=== PATIENT | female | born 1980 | race Caucasian/White ===

== ENCOUNTER 2016-05-28 15:59 | Emergency (ER) | payer OTHER ==
[~2016-05-28] VITALS: Ht 172.7 cm; Wt 70.7 kg
[~2016-05-28 15:59] MED LIST: GABA-113 PO; HYDR-5688 PO; VALP250C3 PO
[2016-05-28 16:04] VITALS: Ht 172.7 cm; Wt 70.7 kg
[2016-05-28 16:12] VITALS: O2SAT 96
--- NOTE | 2016-05-28 16:25 | DIAGNOSTIC IMAGING REPORT ---
CHEST ONE VIEW PORTABLE CLINICAL HISTORY: CHEST PAIN dyspnea COMPARISON STUDY: 06/19/2015 FINDINGS: The bones soft tissues and hemidiaphragms are normal. The cardiomediastinal silhouette is normal. The lungs are clear. The pulmonary vasculature is normal. IMPRESSION: Negative chest. Electronically signed by: Trever Hess M.D. 05/28/2016 4:23 PM Dictated Date/Time: 05/28/2016 4:23 PM
[2016-05-28 16:31] LABS: BASO % 1.4 %; BASO ABS # 0.11 K/uL (0-0.2); COMPLETE YES; EOS % 2.9 %; HEMATOCRIT 41.4 % (37-47); IG% 0.1 %; LYMPH % 26.7 %; LYMPH ABS # 2.05 K/uL (1.2-3.4); MEAN CELL VOLUME 89.8 fL (80-100); MEAN CORPUSCULAR HEMOGLOBIN 31.2 pg (25-34); MEAN CORPUSCULAR HGB CONC 34.8 g/dl (32-36); MONO % 11.8 %; NEUT % 57.1 %; PLATELET COUNT 302 K/uL (130-400); RED BLOOD COUNT 4.61 M/uL (4.2-5.4); WHITE BLOOD COUNT 7.68 K/uL (4.8-10.8)
[2016-05-28] MEDS ORDERED: PRZ/40 PO (16:40)
[2016-05-28] MEDS ORDERED: WEIGHT LOSS PO (16:40)
[2016-05-28] MEDS ORDERED: ONDANSETRON INJ 2 MG/ML 2 ML VIAL IV STA (16:42)
[2016-05-28] MEDS ORDERED: SODIUM CHLORIDE 0.9% 1000ML 1,000 ML IV STA (16:42)
[2016-05-28] MEDS ORDERED: LORAZEPAM 2 MG/ML 1 ML VIAL IV STA ×2 (16:42→17:28)
[2016-05-28 16:50] LABS: PREG INTERNAL NEGATIVE QC NEG CLEAR BACKGROUND; PREG INTERNAL POSITIVE QC POS CONTROL LINE
[2016-05-28 16:52] LABS: ALT/SGPT 27 U/L (12-78); AST/SGOT 16 U/L (15-37); BLOOD UREA NITROGEN 8 mg/dl (7-18); BUN/CREATININE RATIO 8.1 (10-20); CALCIUM 9.3 mg/dl (8.5-10.1); CARBON DIOXIDE 22 mmol/L (21-32); CHLORIDE 104 mmol/L (98-107); CREATININE 0.96 mg/dl (0.60-1.20); GLUCOSE 109 mg/dl (70-99); POTASSIUM 3.6 mmol/L (3.5-5.1); SODIUM 139 mmol/L (136-145)
[2016-05-28 16:57] LABS: ALKALINE PHOSPHATASE 119 U/L (45-117)
--- NOTE | 2016-05-28 18:15 | DIAGNOSTIC IMAGING REPORT ---
CT HEAD WITHOUT CONTRAST (CT) CLINICAL HISTORY: seizure COMPARISON STUDY: 04/12/2015 TECHNIQUE: Axial CT of the brain is performed from the vertex to the skull base. IV contrast was not administered for this examination. CT DOSE: 638.56 mGycm FINDINGS: No intra or extra-axial mass lesions are visualized. There is no CT evidence of acute cortical infarction. There is no evidence of midline shift. There is no acute hemorrhage. No calvarial fractures are visualized. There is no evidence of pathologic ventricular dilatation. There is no evidence of acute sinusitis IMPRESSION: Normal noncontrast head CT. Electronically signed by: Geovanny Moya M.D. 05/28/2016 6:13 PM Dictated Date/Time: 05/28/2016 6:12 PM
[2016-05-28] MEDS ORDERED: DIVALPROEX 500 MG EXTENDED RELEASE TAB PO ONE (18:45)
[2016-05-28 20:45] VITALS: BP 114/62; PULSE 89; TEMP 36.7; O2SAT 97
--- NOTE | 2016-05-28 21:59 | EMERGENCY ROOM VISIT NOTE ---
History Report prepared by Sg: Sophia Vasquez Under the Supervision of: Dr. Hal Guzman M.D. First contact with patient: 16:03 Chief Complaint: SEIZURE Stated Complaint: SOB,CHEST PAIN,SEIZURE History of Present Illness The patient is a 36 year old female who presents to the Emergency Room with complaints of intermittent seizure like activity that began around 1400 today. Per the patient's , the patient her first seizure like episode, noting that the patient arched her back, began shaking violently, her eyes rolled back in her head, and became unresponsive. He notes that the patient had four more seizure like episodes today and notes that the patient was post ictal after each episode. The patient's notes that the patient has been confused after each episode. The patient additionally associates chest pain and shortness of breath after each seizure like activity episode today. The patient states that when she woke this morning she had a migraine-headache and states that she took Excedrin for her headache. She states that she has been vomiting all day, but states that she has been vomiting her seizure medications back up. The patient states that she is currently on 250 mg of Depakote in the morning and 500 mg of Depakote in the evening, but states that she often forgets to take her medications recently. She additionally notes that she is a frequent marijuana user. The patient denies any urinary or bowel incontinence or biting her tongue today during the episode. She states that she has not had a seizure for the past year. The patient states that at the beginning of the week she began to not sleep well and has had bilateral flank pains. The patient 's states that the patient has been under increased stress recently, which her neurologist believes is related to her seizures. Pt denies LOC, headache, fevers, chills, diaphoresis, visual changes, neck pain, nausea, abdominal pain, back pain, melena, hematochezia, urinary symptoms, numbness, weakness, lymphadenopathy, rash, or other complaints. Source of History: patient Onset: 1400 today Position: other (global) Quality: other (seizure like activity) Timing: intermittent Associated Symptoms: + SOB, + chest pain, + headache, + vomiting Note: Associated Symptoms: bilateral flank pains, confusion, post ictal Review of Systems See HPI for pertinent positives and negatives. A total of ten systems were reviewed and were otherwise negative. Past Medical & Surgical Medical Problems: (1) Anxiety State Nos (2) Cannabis Abuse-Unspec (3) Depression (4) Depressive Disorder Nec (5) Generalized-onset seizures (6) Migraine (7) Ovarian Cyst Nec/Nos Surgical Problems: (1) History of delivery (2) Tubal Ligation Status Family History Cancer Gallbladder disease Hypertension Lung disease Seizures Social History Smoking Status: Current Every Day Smoker Alcohol Use: occasionally Drug Use: marijuana Marital Status: single Housing Status: lives with family Occupation Status: unemployed Current/Historical Medications Scheduled Fluoxetine Hcl (Prozac), 40 MG PO DAILY Valproic Acid (Valproic Acid), 250 MG PO QAM Valproic Acid (Valproic Acid), 500 MG PO QPM [Weight Loss Tab], 1 TAB PO DAILY Allergies Coded Allergies: Coconut (Verified Allergy, Intermediate, THROAT IRRITATION, 02/17/16) Cephalexin (Verified Allergy, Unknown, RASH, 02/17/16) Uncoded Allergies: COD FISH (Allergy, Unknown, PREORBITAL SWELLING, 07/24/14) Physical Exam Vital Signs Date Time Temp Pulse Resp B/P Pulse Ox O2 Delivery O2 Flow Rate FiO2 05/28/16 20:45 36.7 89 22 114/62 97 05/28/16 20:44 89 22 114/62 97 Room Air 05/28/16 19:25 77 22 121/78 96 Room Air 05/28/16 17:45 72 22 129/74 96 Room Air 05/28/16 17:00 83 24 115/73 96 Room Air 05/28/16 16:22 78 24 117/73 96 Room Air 05/28/16 16:12 96 Room Air 05/28/16 16:12 96 Room Air 05/28/16 16:10 63 05/28/16 16:04 36.7 86 24 144/89 96 Room Air Physical Exam GENERAL: Awake, alert, well appearing, no distress HENT: Normocephalic, atraumatic. TM's normal. Oropharynx unremarkable. EYES: PERRL. EOMI. Normal conjunctiva. Sclera non-icteric. NECK: Supple. No nuchal rigidity. FROM. No JVD or bruit. RESPIRATORY: CTA CARDIAC: RRR. No murmur. ABDOMEN: Soft, non distended. No tenderness to palpation. No rebound or guarding. No masses. RECTAL: Deferred. MUSCULOSKELETAL: Unremarkable. No edema. No discoloration. Gross motor strength symmetric. NEURO: Cranial nerves 2-12 grossly intact. Normal sensorium. No sensory or motor deficits noted. Speech normal. No pronator drift. SKIN: No rash or jaundice noted. LYMPH: No adenopathy. Medical Decision & Procedures ER Provider Diagnostic Interpretation: X ray results as stated below per my interpretation and radiologist interpretation. Other radiology results as stated below per my review and radiologist interpretation CHEST ONE VIEW PORTABLE CLINICAL HISTORY: CHEST PAIN dyspnea COMPARISON STUDY: 06/19/2015 FINDINGS: The bones soft tissues and hemidiaphragms are normal. The cardiomediastinal silhouette is normal. The lungs are clear. The pulmonary vasculature is normal. IMPRESSION: Negative chest. Electronically signed by: Trever Hess M.D. 05/28/2016 4:23 PM Dictated Date/Time: 05/28/2016 4:[address] HEAD WITHOUT CONTRAST (CT) CLINICAL HISTORY: seizure COMPARISON STUDY: 04/12/2015 TECHNIQUE: Axial CT of the brain is performed from the vertex to the skull base. IV contrast was not administered for this examination. CT DOSE: 638.56 mGycm FINDINGS: No intra or extra-axial mass lesions are visualized. There is no CT evidence of acute cortical infarction. There is no evidence of midline shift. There is no acute hemorrhage. No calvarial fractures are visualized. There is no evidence of pathologic ventricular dilatation. There is no evidence of acute sinusitis IMPRESSION: Normal noncontrast head CT. Electronically signed by: Geovanny Moya M.D. 05/28/2016 6:13 PM Dictated Date/Time: 05/28/2016 6:12 PM Laboratory Results 05/28/16 16:15 Red Blood Count 4.61, Mean Corpuscular Volume 89.8, Mean Corpuscular Hemoglobin 31.2, Mean Corpuscular Hemoglobin Concent 34.8, Mean Platelet Volume 10.0, Neutrophils (%) (Auto) 57.1, Lymphocytes (%) (Auto) 26.7, Monocytes (%) (Auto) 11.8, Eosinophils (%) (Auto) 2.9, Basophils (%) (Auto) 1.4, Neutrophils # (Auto ) 4.38, Lymphocytes # (Auto) 2.05, Monocytes # (Auto) 0.91, Eosinophils # (Auto ) 0.22, Basophils # (Auto) 0.11 05/28/16 16:15 Test 05/28/16 16:15 05/28/16 16:27 White Blood Count 7.68 K/uL (4.8-10.8) Red Blood Count 4.61 M/uL (4.2-5.4) Hemoglobin 14.4 g/dL (12.0-16.0) Hematocrit 41.4 % (37-47) Mean Corpuscular Volume 89.8 fL (80-100) Mean Corpuscular Hemoglobin 31.2 pg (25-34) Mean Corpuscular Hemoglobin Concent 34.8 g/dl (32-36) Platelet Count 302 K/uL (130-400) Mean Platelet Volume 10.0 fL (7.4-10.4) Neutrophils (%) (Auto) 57.1 % Lymphocytes (%) (Auto) 26.7 % Monocytes (%) (Auto) 11.8 % Eosinophils (%) (Auto) 2.9 % Basophils (%) (Auto) 1.4 % Neutrophils # (Auto) 4.38 K/uL (1.4-6.5) Lymphocytes # (Auto) 2.05 K/uL (1.2-3.4) Monocytes # (Auto) 0.91 K/uL (0.11-0.59) Eosinophils # (Auto) 0.22 K/uL (0-0.5) Basophils # (Auto) 0.11 K/uL (0-0.2) RDW Standard Deviation 44.1 fL (36.4-46.3) RDW Coefficient of Variation 13.5 % (11.5-14.5) Immature Granulocyte % (Auto) 0.1 % Immature Granulocyte # (Auto) 0.01 K/uL (0.00-0.02) Anion Gap 13.0 mmol/L (3-11) Est Creatinine Clear Calc Drug Dose 81.7 ml/min Estimated GFR () 88.2 Estimated GFR (Non- 76.1 BUN/Creatinine Ratio 8.1 (10-20) Calcium Level 9.3 mg/dl (8.5-10.1) Total Bilirubin 0.2 mg/dl (0.2-1) Direct Bilirubin < 0.1 mg/dl (0-0.2) Aspartate Amino Transf (AST/SGOT) 16 U/L (15-37) Alanine Aminotransferase (ALT/SGPT) 27 U/L (12-78) Alkaline Phosphatase 119 U/L (45-117) Total Creatine Kinase 67 U/L (26-192) Creatine Kinase MB < 0.5 ng/ml (0.5-3.6) Creatine Kinase MB Ratio (0-3.0) Total Protein 8.3 gm/dl (6.4-8.2) Albumin 4.1 gm/dl (3.4-5.0) Lipase 126 U/L (73-393) Human Chorionic Gonadotropin, Qual NEG (NEG) Valproic Acid (Depakene) Level 13 mcg/ml (50-100) Bedside D-Dimer 112 ng/mlFEU (0-450) Bedside Troponin I 0.000 ng/ml (0-0.045) Medications Administered Medications (Trade) Dose Ordered Sig/Olya Route Start Time Stop Time Status Last Admin Dose Admin Sodium Chloride (Nss 1000ml) 1,000 ml @ 999 mls/hr Q1H1M STAT IV 05/28/16 16:42 05/28/16 17:42 DC 05/28/16 17:16 999 MLS/HR Ondansetron HCl (Zofran Inj) 4 mg NOW STAT IV 05/28/16 16:42 05/28/16 16:43 DC 05/28/16 17:16 4 MG Lorazepam (Ativan Inj) 0.5 mg NOW STAT IV 05/28/16 16:42 05/28/16 16:43 DC 05/28/16 17:16 0.5 MG Lorazepam (Ativan Inj) 0.5 mg NOW STAT IV 05/28/16 17:28 05/28/16 17:30 DC 05/28/16 17:34 0.5 MG Divalproex Sodium (Depakote Extended Rel Tab) 500 mg NOW ONCE PO 05/28/16 18:45 05/28/16 18:46 DC 05/28/16 18:56 500 MG ECG Indication: other (seizure) Rate (beats per minute): 61 Rhythm: normal sinus Findings: no acute ischemic change, no ectopy ED Course 1604: The patient was evaluated in room B4. A complete history and physical exam was performed by the medical student. 1615: May 29 2014 had an episode during EEG that did not correlate with any EEG findings, so they felt it was a pseudo seizure. 1640: The patient was evaluated in room B4. A complete history and physical exam was performed. 1642: Ordered Ativan Inj 0.5 mg IV, Zofran Inj 4 mg IV, Sodium Chloride 1000 ml @ 999 mls/hr IV. 1651: The patient experienced seizure like activity at this time that lasted approximately 10 seconds. 1728: Ordered Ativan Inj 0.5 mg IV. 1812: I reevaluated the patient and she is doing well and feeling better. 183: I discussed the patients case with Dr. Deleon, Neurology. He states that the patient should have 500 mg of Depakote now, 500 mg of Depakote tonight, and then her regular dose in the morning. 1840: I reevaluated the patient and she is resting comfortably. 1844: Ordered Depakote Extended Rel Tab 500 mg PO. 1943: I reevaluated the patient and she is resting comfortably. I discussed the exam findings with her and I discussed the treatment plan. She verbalized complete understanding and agreement. She is ready to go home. Medical Decision Prior records/ancillary studies reviewed. Patient placed in seizure precautions immediately upon arrival. Nursing notes reviewed and agree them. Additional history obtained from family. The patient's history was concerning for a possible seizure. Differential diagnosis: Etiologies such as seizure, pseudoseizure, infection, hypoglycemia, electrolyte abnormalities, cardiac sources, intracerebral event, trauma, toxicologic, neurologic, PE, as well as others were entertained. Physical examination: As above. No signs of trauma. ER treatment provided: IV saline hydration, IV Ativan 0.5 mg 2 On reassessment the patient felt better. Depakote 500 mg orally Diagnostics interpretation by me: ECG: Normal The labs revealed an unremarkable CBC, chemistry panel, cardiac markers, test, urinalysis and a very low valproic acid level. This is consistent with the fact that the patient admits to not taking her valproic acid. D-dimer negative. Imaging studies: X-ray and CT scan as above The patient had a tonic-clonic like seizure described at home. She then had for slightly different episodes. The episodes she had here were short lived and there was no postictal period. The patient had one witnessed directly by me. She never had cyanosis. She had arching of her back and muscular tension in her arms. She was able to converse and coherent within about 10 seconds of the episode stopping. She does carry the diagnosis of seizure as well as the diagnosis of pseudoseizure. The episodes witnessed here by myself and nursing seemed to be most consistent with pseudoseizure as the nurses were actually noting she was able to be verbally controlled during the episodes for them. Consultation: A consultation was placed with the neurologist, .Dr. Deleon The case was discussed and diagnostics were reviewed. He recommended 500 mg twice today of the Depakote and then resume normal maintenance with close outpatient follow-up The patient has a history of seizures and experienced another episode. No concerning physical findings or historical points were noted. Advanced diagnostics were deemed unnecessary. By the evaluation outlined above emergent etiologies such as infection, hypoglycemia, electrolyte abnormalities, cardiac sources, intracerebral event, toxicologic, neurologic,as well as others were deemed relatively unlikely. The patient was counseled not to drive until cleared in follow-up. The patient states she is currently unable to drive. The patient and family were informed about the findings as listed above. All questions were answered and they were pleased with the treatment. Return instructions were outlined and the patient was discharged in stable condition. Outpatient prescription management: Continue current medications as previously prescribed Referral: The patient was referred back to her neurologist and her primary care physician for follow-up BRANDEE for a recheck of the current condition. The chart was completed utilizing [employer] Speech voice recognition software. Grammatical errors, random word insertions, pronoun errors, and incomplete sentences are an occasional consequence of this system due to software limitations, ambient noise, and hardware issues. Any formal questions or concerns about the content, text, or information contained within the body of this dictation should be directly addressed to the physician for clarification. Consults Time Called: 1829 Consulting Physician: Dr. Deleon, Neurology Returned Call: 1831 I discussed the patients case with Dr. Deleon, Neurology. He states that the patient should have 500 mg of Depakote now, 500 mg of Depakote tonight, and then her regular dose in the morning. Impression Primary Impression: Seizure-like activity Additional Impression: Noncompliance with medication regimen Scribe Attestation The scribe's documentation has been prepared under my direction and personally reviewed by me in its entirety. I confirm that the note above accurately reflects all work, treatment, procedures, and medical decision making performed by me. Departure Information Dispostion Home / Self-Care Referrals Antonette Cortés, C.R.N.P. (PCP) Forms HOME CARE DOCUMENTATION FORM, IMPORTANT VISIT INFORMATION Patient Instructions A Signature Page, My [facility] Additional Instructions Take an additional 100 mg of Depakote this evening and then resume normal medication dose. Ibuprofen(Motrin, Advil) may be used for fever or pain. Use 600mg every six hours as needed. Take with food. Avoid using more than 2400mg in a 24 hour period. Do not use 2400mg per day for more than three consecutive days without physician direction. Prolonged inappropriate use can lead to stomach upset or ulcers. (AND/OR) Acetaminophen(Tylenol) may be used for fever or pain. Use 1000mg every six hours as needed. Avoid using more than 4000mg in a 24 hour period. Rest and drink plenty of fluids as tolerated. Continue current medications. Return to the ER for passing out, chest pain, headache, persistent vomiting, fevers, abdominal pain, chest pains, difficulty breathing, black or bloody stools, worsening of your condition, or as needed. Follow up with your primary physician and neurologist first thing next week for a recheck of your current condition
[2016-10-23] MEDS ORDERED: PRVHFAIN (11:15)
[2016-11-13] MEDS ORDERED: OXYC-57 PO (13:51)
[2016-11-13] MEDS ORDERED: MTR600X PO (13:51)
== END 2016-05-28 20:47 | disposition home or self-care (01) ==
LOC: C.EDB 16:02
DX: G40.309 Generalized idiopathic epilepsy and epileptic syndromes, not intractable, without status epilepticus (principal); F41.9 Anxiety disorder, unspecified; F32.9 Major depressive disorder, single episode, unspecified; N83.209 Unspecified ovarian cyst, unspecified side; F17.200 Nicotine dependence, unspecified, uncomplicated; Z98.61 Coronary angioplasty status; Z79.899 Other long term (current) drug therapy; Z91.018 Allergy to other foods; Z88.8 Allergy status to other drugs, medicaments and biological substances; Z80.9 Family history of malignant neoplasm, unspecified; Z83.79 Family history of other diseases of the digestive system; Z82.49 Family history of ischemic heart disease and other diseases of the circulatory system; Z82.0 Family history of epilepsy and other diseases of the nervous system

== ENCOUNTER 2016-07-27 20:25 | Emergency (ER) | payer OTHER ==
[~2016-07-27] VITALS: Ht 172.7 cm; Wt 70.8 kg
[~2016-07-27 20:25] MED LIST changes: -GABA-113 PO; -HYDR-5688 PO; +PRZ/40 PO; +WEIGHT LOSS PO
[2016-07-27 20:33] VITALS: BP 116/75; PULSE 87; TEMP 37.1; O2SAT 97; Ht 172.7 cm; Wt 70.8 kg
[2016-07-27] MEDS ORDERED: HYDROCODONE/ACETAMOPHEN 5/325MG TAB PO STA (20:45)
[2016-07-27] MEDS ORDERED: NORCO 5/325MG HOME PACK PO ONE (20:45)
[2016-07-27] MEDS ORDERED: DIVA500T59 PO ×2 (20:52)
--- NOTE | 2016-07-27 21:10 | EMERGENCY ROOM VISIT NOTE ---
ED Visit Note First contact with patient: 20:37 CHIEF COMPLAINT: Left breast pain HISTORY OF PRESENT ILLNESS: This 36-year-old female presents the ER with chief complaint of left breast pain. The patient states that the pain has been going on for 3 weeks. She denies any nipple discharge, redness, fever, palpable lumps. The patient has an appointment with her MEASURING MACHINE OPERATOR on for her symptoms. She states that the pain got too severe tonight and therefore she came to the emergency room. The patient states that she did not take anything at home for the pain. She does admit that she took an Excedrin Migraine earlier today for migraine headache. The patient admits to drinking a lot of caffeine. The patient has never had a mammogram. The patient denies any family history of breast cancer. REVIEW OF SYSTEMS: 6 system review was performed and was negative unless stated otherwise in history of present illness. PMH: The patient is healthy; see chronic problem list. SOCIAL HISTORY: Patient lives with her and son. The patient admits to tobacco use but denies any alcohol use. PHYSICAL EXAM: Vital Signs: Were reviewed Reviewed Nurse's notes. GENERAL: 36- year-old white female appears in no acute distress. MENTAL Status: Alert and oriented 3. LUNGS: Clear to auscultation and breath sounds equal, no wheezes, rales, or rhonchi. HEART: Heart sounds are regular without murmurs, ectopy, gallop, or rub. BREASTS: Right breast cyst is slightly smaller than left breast. Bilateral breasts without erythema, edema or palpable masses. No nipple discharge bilaterally. Axillary regions without lymphadenopathy. EMERGENCY DEPARTMENT COURSE: Patient was evaluated. I discussed with the patient that we do not do any diagnostic possibilities through the emergency room. The patient verbalized understanding. The patient was given Gaylord 5/325 mg 2 tablets by mouth for pain. She was also given a Gaylord home pack to take as directed. The patient was discharged home in stable condition. DIAGNOSIS: Left breast pain TREATMENT and DISCHARGE INSTRUCTIONS: Ibuprofen 600 mg every 6 hours with food for pain. Take Gaylord as needed for more severe pain. Do not drive while taking the Gaylord. Keep scheduled appointment with your MEASURING MACHINE OPERATOR on for further evaluation and testing. Problem List Medical Problems: (1) Depression Status: Chronic (2) Generalized-onset seizures Status: Chronic (3) Migraine Status: Chronic Surgical Problems: (1) History of delivery Status: Resolved Current/Historical Medications Scheduled Divalproex Sodium (Depakote), 500 MG PO QPM Divalproex Sodium (Depakote), 250 TAB PO QAM Fluoxetine Hcl (Prozac), 40 MG PO DAILY Allergies Coded Allergies: Coconut (Verified Allergy, Intermediate, THROAT IRRITATION, 07/27/16) Cephalexin (Verified Allergy, Unknown, RASH, 07/27/16) Uncoded Allergies: COD FISH (Allergy, Unknown, PREORBITAL SWELLING, 07/24/14) Vital Signs Date Time Temp Pulse Resp B/P Pulse Ox O2 Delivery O2 Flow Rate FiO2 07/27/16 20:33 37.1 87 18 116/75 97 Room Air Medications Administered Medications (Trade) Dose Ordered Sig/Olya Route Start Time Stop Time Status Last Admin Dose Admin Acetaminophen/ Hydrocodone Bitart (Gaylord 5/325 Tab) 2 tab NOW STAT PO 07/27/16 20:45 07/27/16 20:48 DC 07/27/16 21:01 2 TAB Acetaminophen/ Hydrocodone Bitart (Gaylord 5/325mg Home Pack) 1 homepack UD ONCE PO 07/27/16 20:45 07/27/16 20:48 DC 07/27/16 21:01 1 HOMEPACK Departure Information Referrals Akira Gonsalez M.D. (PCP) Patient Instructions My [facility]
[2016-10-23] MEDS ORDERED: PRVHFAIN (11:15)
[2016-11-13] MEDS ORDERED: OXYC-57 PO (13:51)
[2016-11-13] MEDS ORDERED: MTR600X PO (13:51)
== END 2016-07-27 21:17 | disposition home or self-care (01) ==
LOC: C.EDB 20:27 → C.EDD 21:17
DX: N64.4 Mastodynia (principal); Z79.899 Other long term (current) drug therapy

== ENCOUNTER → 2016-08-05 | Outpatient (CLI) | payer OTHER ==
[~2016-08-05] MED LIST changes: +DIVA500T59 PO; +DOXY100C2 PO; +FLUO20CA37 PO; +HYDR-3419 PO; +MTR600X PO; +OXYC-57 PO; +PROM25TA9 PO; +PRVHFAIN; +TOPI50TA16 PO; -VALP250C3 PO; -WEIGHT LOSS PO
--- NOTE | 2016-08-05 14:27 | MAMMOGRAPHY REPORT ---
BILATERAL DIGITAL DIAGNOSTIC MAMMOGRAM TOMOSYNTHESIS WITH CAD AND TARGETED BILATERAL ULTRASOUND: 07/22 CLINICAL HISTORY: The patient reports constant focal pain in the left breast for approximately 3 wee ks. She denies an associated palpable lump. TECHNIQUE: Breast tomosynthesis in addition to standard 2D mammography was performed. Current study was also evaluated with a Computer Aided Detection (CAD) system. Bilateral CC and MLO 2-D and abhishek synthesis images were obtained. COMPARISON: No prior exams were available for comparison. BREAST COMPOSITION: The tissue of both breasts is heterogeneously dense, which may obscure small ma sses. FINDINGS: A triangle marker snow the site of focal pain in the left upper outer quadrant. No susp icious masses or other suspicious mammographic abnormalities are noted in this region. There is a 2 .2 cm asymmetry seen within the left superior breast on the MLO view which has the appearance of fib roglandular tissue on the tomosynthesis images. Additionally, there is a 10 mm asymmetry seen along the posterior nipple line middle depth on the right cc tomosynthesis images, which likely also repr esents normal fibroglandular tissue. The remainder of both breasts are negative, without suspicious masses, calcifications, or areas of architectural distortion noted. Targeted ultrasound was performed of the area of focal pain pointed out by the patient, in the left breast at 2:00, 4 cm from the nipple. Sonographically normal tissue is seen in this region, without evidence of a mass or other suspicious sonographic abnormality. Targeted ultrasound was also perfo rmed of the left superior breast and right breast at 12:00, 6:00, and subareolar region, in the albaro on of the mammographic asymmetries. Sonographically normal tissue is seen in these regions, without evidence of a mass or other suspicious sonographic abnormality. Given the lack of corresponding so nographic abnormality, the asymmetries are benign and most compatible with normal fibroglandular tis julio. IMPRESSION: ACR BI-RADS CATEGORY 2: BENIGN, TARGETED ULTRASOUND ACR BI-RADS CATEGORY 2: BENIGN No suspicious mammographic or sonographic abnormality at the site of focal left breast pain. There is no mammographic or targeted sonographic evidence of malignancy. Recommend clinical follow-up for left breast pain, and recommend routine bilateral screening mammogram starting at the age of 40 unl ess otherwise clinically indicated. The patient has been verbally notified of the results. Approximately 10% of breast cancers are not detected with mammography. A negative mammographic repor t should not delay biopsy if a clinically suggestive mass is present. Parvin Jean M.D. ah/:08/05/2016 13:31:48 [employer] Representative: Lyssa SANDOVAL)(Theresa), [facility] letter sent: Normal 1/2 BI-RADS Code: ACR BI-RADS Category 2: Benign Ultrasound BI-RADS: ACR BI-RADS Category 2: Benign
== END | disposition home or self-care (01) ==
LOC: C.MAMM 12:53
PROVIDERS: ATTEND Obstetrics & Gynecology
DX: N64.4 Mastodynia (principal)

== ENCOUNTER → 2016-09-11 | Outpatient (CLI) | payer OTHER ==
[2016-09-11 13:59] LABS: PREG INTERNAL NEGATIVE QC NEG CLEAR BACKGROUND; PREG INTERNAL POSITIVE QC POS CONTROL LINE
== END | disposition home or self-care (01) ==
LOC: C.LAB1850 11:12
PROVIDERS: ATTEND Obstetrics & Gynecology
DX: R93.8 Abnormal findings on diagnostic imaging of other specified body structures (principal)

== ENCOUNTER → 2016-10-09 | Outpatient (CLI) | payer OTHER | END | disposition home or self-care (01) | LOC: C.PAPS 15:18 | PROVIDERS: ATTEND Internal Medicine | DX: N80.0 Endometriosis of uterus (principal) ==

== ENCOUNTER → 2016-10-14 | Outpatient (CLI) | payer OTHER ==
[2016-10-14 16:55] LABS: BASO % 0.7 %; BASO ABS # 0.08 K/uL (0-0.2); COMPLETE YES; EOS % 3.1 %; HEMATOCRIT 41.4 % (37-47); IG% 0.3 %; LYMPH % 27.8 %; LYMPH ABS # 3.15 K/uL (1.2-3.4); MEAN CELL VOLUME 92.4 fL (80-100); MEAN CORPUSCULAR HEMOGLOBIN 30.4 pg (25-34); MEAN CORPUSCULAR HGB CONC 32.9 g/dl (32-36); MEAN PLATELET VOLUME 10.3 fL (7.4-10.4); MONO % 7.5 %; NEUT % 60.6 %; PLATELET COUNT 313 K/uL (130-400); RED BLOOD COUNT 4.48 M/uL (4.2-5.4); WHITE BLOOD COUNT 11.33 K/uL (4.8-10.8)
[2016-10-14 17:18] LABS: BLOOD UREA NITROGEN 7 mg/dl (7-18); CALCIUM 8.8 mg/dl (8.5-10.1); CARBON DIOXIDE 28 mmol/L (21-32); CHLORIDE 108 mmol/L (98-107); CREATININE 0.78 mg/dl (0.60-1.20); GLUCOSE 85 mg/dl (70-99); SODIUM 141 mmol/L (136-145)
== END | disposition home or self-care (01) ==
LOC: C.LAB1850 15:09
PROVIDERS: ATTEND Obstetrics & Gynecology
DX: Z01.818 Encounter for other preprocedural examination (principal)

== ENCOUNTER 2016-11-13 09:32 | Observation (INO) | payer OTHER ==
[2016-10-23 10:54] VITALS: BMI 22.0
[~2016-11-13] VITALS: Ht 172.7 cm; Wt 66.8 kg
[~2016-11-13 09:32] MED LIST changes: +CIPROFLOXACIN / D5W 400 MG IV SCH; -DOXY100C2 PO; -FLUO20CA37 PO; -HYDR-3419 PO; +LACTATED RINGER'S 1000ML 1,000 ML IV SCH; +METRONIDAZOLE 500MG / NSS IV SCH; -MTR600X PO; -OXYC-57 PO; -PROM25TA9 PO; -TOPI50TA16 PO
[2016-11-13 10:40] LABS: PREG INTERNAL NEGATIVE QC NEG CLEAR BACKGROUND; PREG INTERNAL POSITIVE QC POS CONTROL LINE
[2016-11-13 10:47] VITALS: BP 95/68; PULSE 63; TEMP 37; O2SAT 97; Ht 172.7 cm; Wt 66.8 kg
[2016-11-13] MEDS ORDERED: GLYCOPYRROLATE INJ 0.2 MG/ML VIAL ONE (10:54)
[2016-11-13] MEDS ORDERED: DEXAMETHASONE SOD INJ 4 MG/ML VIAL ONE (10:54)
[2016-11-13] MEDS ORDERED: LIDOCAINE HCL 2% 2 ML VIAL (20MG/ML) ONE (10:54)
[2016-11-13] MEDS ORDERED: ROCURONIUM BROMIDE 10 MG/ML 5 ML VIAL ONE (10:54)
[2016-11-13] MEDS ORDERED: PROPOFOL IV EMULSION 10 MG/ML 20 ML VIAL IV ONE (10:54)
[2016-11-13] MEDS ORDERED: ONDANSETRON INJ 2 MG/ML 2 ML VIAL ONE (10:54)
[2016-11-13] MEDS ORDERED: NEOSTIGMINE METHYLSULFATE 5 MG/5 ML SYR ONE (10:54)
[2016-11-13] MEDS ORDERED: MIDAZOLAM HCL 1 MG/ML 2ML VIAL ONE (10:54)
[2016-11-13] MEDS ORDERED: FENTANYL CITRATE INJ 50 MCG/1 ML 2 ML VIAL ONE ×2 (10:55)
--- NOTE | 2016-11-13 11:36 | History & Physical Bridge Note ---
H&P Re-Evaluation Bridge Note: I have examined the patient, reviewed the History & Physical and in the interval since the performance of the History & Physical I have noted the following changes of clinical significance: No changes noted
[2016-11-13] MEDS ORDERED: METHYLENE BLUE 0.5% 10 ML VIAL ONE (11:52)
[2016-11-13] MEDS ORDERED: BUPIVACAINE 0.5 % 5 MG/1 ML MPF 30ML VIAL ONE (11:52)
[2016-11-13] MEDS ORDERED: KETOROLAC TROMETHAMINE 30 MG/ML VIAL ONE (13:34)
[2016-11-13] MEDS ORDERED: EpHEDrine SULFATE INJ 50 MG/ML AMP IV PRN (13:45)
[2016-11-13] MEDS ORDERED: NALOXONE HCL 0.4 MG/1 ML VIAL/CARP IV PRN (13:45)
[2016-11-13] MEDS ORDERED: LABETALOL HCL IV 5 MG/ML 20ML IV PRN (13:45)
[2016-11-13] MEDS ORDERED: ATROPINE SULFATE 0.1 MG/ML 5ML SYR IV PRN (13:45)
[2016-11-13] MEDS ORDERED: ONDANSETRON INJ 2 MG/ML 2 ML VIAL IV PRN ×2 (13:45→14:00)
[2016-11-13] MEDS ORDERED: PROMETHAZINE HCL INJ 12.5 MG in SODIUM CHLORIDE 0.9% 50ML 50 ML IV PRN ×2 (13:45→14:00)
[2016-11-13] MEDS ORDERED: FLUMAZENIL 0.1 MG/1 ML 10 ML VIAL IV PRN (13:45)
[2016-11-13] MEDS ORDERED: LACTATED RINGER'S 1000ML 1,000 ML IV SCH (13:46)
--- NOTE | 2016-11-13 13:48 | [facility] Post Operative Brief Note ---
Immediate Operative Summary Operative Date Nov 13, 2016. Pre-Operative Diagnosis Adenomyosis Female pelvic pain Menorrhagia Post-Operative Diagnosis Same as preop Procedure(s) Performed Robotic-assisted Total Laparoscopic Hysterectomy, bilateral salpingectomy, lysis of adhesions, cystoscopy Surgeon Dr. Moreira Sfdc Developer Surgeon(s) Dr. Fuentes Estimated Blood Loss 20 cc Findings adhesions Specimens A: uterus, cervix, bilateral fallopian tubes Drains Platt Anesthesia General Complication(s) None Disposition Recovery Room / PACU
--- NOTE | 2016-11-13 13:50 | Discharge Instructions ---
Discharge Instructions Date of Service Nov 13, 2016. Admission Reason for Admission: Menorrhagia, Pelvic Mass Discharge Discharge Diagnosis / Problem: menorrhagia Discharge Goals Goal(s): Routine recovery after surgery Activity Recommendations Activity Limitations: per Instructions/Follow-up section . Instructions / Follow-Up Instructions / Follow-Up POST OPERATIVE: BOWEL FUNCTION/MEDICATIONS: 1. Constipation pain and discomfort are the most common complaints 5-7 days after surgery. Points 2-6 address the things that can help. 2. Chewing gum can help stimulate the gut and help improve digestion and motility. 3. Milk of Magnesia 1-2 times per day until return of bowel function. 4. Colace is a stool softener that helps. Taking this 2-3 times per day until bowel function returns to normal is highly recommended. 5. Dulcolax is a laxative that may be used if several days have passed without a bowel movement. Alternatively Miralax may be used daily instead. 6. Drink plenty of fluids as this will also reduce constipation. 7. Narcotic pain medications will be prescribed by your physician. They are safe to use and we encourage you to use them. If you are not allergic, ibuprofen will also be prescribed. Many patients will be able to transition off of the narcotic medications to ibuprofen by postoperative day 3. ACTIVITY RECOMMENDATIONS: 1. Get plenty of rest and listen to your body. If you are tired, take a nap. 2. You may shower, but do not take a tub bath until you see your doctor at the 2 week post operative visit. 3. Absolutely NO intercourse and nothing in the vagina until you are examined by your doctor at the 6 week visit. At that visit it will be determined when such activities can be resumed. This can range from 6-12 weeks after your surgery depending on healing time. 4. The main physical activity in the first week should be walking. By the second week you can slowly increase activity. There are no limits on walking up and down stairs. 5. Do not lift more than 5-10 lbs for 4 weeks. Remember the "one-handed rule", i.e. if you can lift something with only one hand it's likely okay. 6. Minimize paper cutter like vacuuming and exercising for 4 weeks. "Overdoing it" can lead to incisions not healing, pain and vaginal bleeding , so again, listen to your body. 7. Driving can be resumed when you feel able. Do not drive within 24 hours of taking a narcotic medication. EXPECTATIONS: 1. Vaginal spotting, bleeding and discharge are common after surgery. There may even be an odor to the discharge which is often related to sutures used in the vagina. If you experience heavy vaginal bleeding, call the office number day or night [phone]. 2. Bladder discomfort is common after surgery from the catheter. This usually resolves in 1-2 weeks. 3. By the end of the 3rd or 4th week you should be feeling much better. It may take up to 6 weeks for your energy levels to return to normal. 4. Narcotic medications have side effects such as: dizziness, headache, nausea and/or vomiting. If you suspect your pain medication is causing problems, call our office and we may be able to prescribe an alternate medication. 5. The skin incisions are often covered with a liquid bandage. This will gradually peel off over time. CALL THE OFFICE IF YOU HAVE ANY OF THE FOLLOWIN. Temperature of 101 degrees or higher. 2. Severe abdominal or pelvic pain not relieved by pain medication. 3. Persistent nausea or vomiting. 4. Increased pain with urination or difficulty urinating. 5. Bright red bleeding that soaks more than 1 pad per hour. CONTACT PHONE NUMBERS: Main Office: [phone] Surgical Nurse: [phone] extension [phone] Avoid all tobacco products. If you need help to stop smoking, call [place]'s FREE QUITLINE at . This is a free call. Current Hospital Diet Patient's current hospital diet: Discharge Diet Recommended Diet: Regular Diet Procedures Procedures Performed: Robotic-assisted Total Laparoscopic Hysterectomy, bilateral salpingectomy, lysis of adhesions, cystoscopy Pending Studies Studies pending at discharge: no Medical Emergencies . Who to Call and When: Medical Emergencies: If at any time you feel your situation is an emergency, please call 911 immediately. . Non-Emergent Contact Non-Emergency issues call your: Assistant Laboratory Director . . "Provider Documentation" section prepared by Hal Moreira. . VTE Core Measure Inpt VTE Proph given/why not?: Natanael Giron, YAZ's
[2016-11-13] MEDS ORDERED: MTR600X PO (13:51)
[2016-11-13] MEDS ORDERED: OXYC-57 PO (13:51)
[2016-11-13] MEDS ORDERED: TISSEEL FIBRIN SEALANT 4ML TOP ONE (13:56)
[2016-11-13] MEDS: HYDROmorphone INJ 1 MG/ML SYR IV PRN ×3 (13:59→14:18)
[2016-11-13] MEDS ORDERED: ZOLPIDEM TARTRATE 5 MG TAB PO PRN (14:00)
[2016-11-13] MEDS ORDERED: MEPERIDINE HCL 50 MG/ML CARP IV PRN ×2 (14:00)
[2016-11-13] MEDS ORDERED: IBUPROFEN 600 MG TAB PO PRN (14:00)
[2016-11-13] MEDS ORDERED: MAGNESIUM HYDROXIDE SUSP 30 ML UDC PO PRN (14:00)
[2016-11-13] MEDS ORDERED: ACETAMINOPHEN 325 MG TAB PO PRN (14:00)
[2016-11-13] MEDS ORDERED: OXYCODONE/ACETAMINOPHEN 5-325 TAB PO PRN ×2 (14:00)
[2016-11-13] MEDS ORDERED: PROMETHAZINE HCL INJ 25 MG in SODIUM CHLORIDE 0.9% 50ML 50 ML IV PRN (14:00)
[2016-11-13] MEDS ORDERED: SIMETHICONE 80 MG CHEW PO PRN (14:00)
[2016-11-13] MEDS ORDERED: KETOROLAC TROMETHAMINE 30 MG/ML VIAL IV. PRN (14:00)
[2016-11-13] MEDS ORDERED: BISACODYL 10 MG SUPP PR PRN (14:00)
[2016-11-13] MEDS ORDERED: IV FLUIDS COMPLETED PRN (14:15)
--- NOTE | 2016-11-13 14:43 | Anesthesiology Progress Note ---
Anesthesia Post Op Note Date & Time Nov 13, 2016 at 14:43 Vital Signs Pain Intensity: 4 Vital Signs Past 12 Hours Date Time Temp Pulse Resp B/P (MAP) Pulse Ox O2 Delivery O2 Flow Rate FiO2 11/13/16 13:56 36.3 64 16 113/66 98 Mask 10 11/13/16 10:47 37.0 63 18 95/68 (77) 97 Room Air Notes Mental Status: alert / awake / arousable, participated in evaluation Pt Amnestic to Procedure: Yes Nausea / Vomiting: adequately controlled Pain: adequately controlled Airway Patency, RR, SpO2: stable & adequate BP & HR: stable & adequate Hydration State: stable & adequate Anesthetic Complications: no major complications apparent
[2016-11-13 15:10] VITALS: BP 103/54; PULSE 72; TEMP 36.7; O2SAT 97
[2016-11-13 15:40] VITALS: BP 98/62; PULSE 74; O2SAT 96
[2016-11-13] MEDS ORDERED: DiphenhydrAMINE HCL 50 MG/ML VIAL IV PRN (16:00)
[2016-11-13] MEDS ORDERED: NURSING VERBAL MED ORDER ONE (16:00)
[2016-11-13 16:10] VITALS: BP 117/74; PULSE 97; O2SAT 97
[2016-11-13 17:10] VITALS: BP 108/62; PULSE 72; O2SAT 97
[2016-11-13 18:22] VITALS: BP 117/74; PULSE 97; TEMP 36.7; O2SAT 97
--- NOTE | 2016-11-13 20:00 | OPERATIVE REPORT ---
DATE OF OPERATION: 11/13/2016 PREOPERATIVE DIAGNOSES: Adenomyosis, female pelvic pain, menorrhagia. POSTOPERATIVE DIAGNOSES: Same. PROCEDURES: Laparoscopic robotically assisted total laparoscopic hysterectomy, bilateral salpingectomy, lysis of adhesions, cystoscopy. SURGEON: Dr. Moreira. TECHNICAL ILLUSTRATOR: Dr. Fuentes. ESTIMATED BLOOD LOSS: 20 mL. FINDINGS: Adhesions. SPECIMENS: Uterus, cervix, and bilateral fallopian tubes. DRAINS: Platt catheter. ANESTHETIC: General. COMPLICATIONS: None. DISPOSITION: Recovery room. DESCRIPTION OF PROCEDURE: Debi was given a general anesthetic, prepped and draped in dorsolithotomy position in [facility]. IV antibiotics given preoperatively and then Platt catheter used to drain her bladder. VCare attached to her cervix and sewn in place. Gloves changed and a supraumbilical incision made with scalpel using Rodriguez open dissection technique, we cut down through subcutaneous fat to the fascia in the midline. Rectus muscles then split. Peritoneal cavity entered and blunt-tipped Jhony trocar placed. The balloon was inflated. CO2 gas allowed to insufflate. FINDINGS: Upper abdomen normal, no sign of upper visceral organ damage. The deep Trendelenburg was obtained and we visualized some omental adhesions anteriorly. The bladder flap region had adhesions from prior C-sections, but these are certainly not extensive. We put 2 robotic ports in, 1 on the left, 1 on the right side and a left upper quadrant bladeless 11 mm port as well. Robot was then docked and then procedure was begun by first dissecting away the omental adhesions to the anterior abdominal wall with bipolar Maryland and the monopolar samira. This was done without difficulty. We then identified the ureter course on left and right side. It seemed to follow a normal course. We began the left side by removing the left fallopian tube. This was then removed through the accessory port. We then coagulated the blood supply distal to the ovary and then the same process with the round ligament. The broad round ligament was skeletonized and the uterine vessels were skeletonized and bladder flap was sharply dissected away. We identified the uterine vessels on the left side, coagulated these with the bipolar Maryland's and note we were well away from the ureter. These were then cut with the monopolar samira. The exact same process was performed on the right side. Again care was taken on dissection of the bladder which was primarily done sharply. At this stage, I was able to make an anterior colpotomy with the monopolar samira anteriorly. This was then continued around to separate the cervix from the vagina. At this stage, the uterus was then removed into the vagina to maintain pneumoperitoneum. Instruments were then exchanged and a madhav needle driver merchandiser for arm #1 and cobra grasper in arm 2 and a 12 inch 2-0, 90-day V-Loc suture was then passed through the accessory port. Cuff was closed from left to right, back right to left ensuring closing at least 1 cm full thickness bites of vaginal mucosa. Suture was cut so there was no tail and needle removed through the accessory port. After generous irrigation and suction, there was no bleeding noted. IV methylene blue would be given at the start of cuff closure. Cystoscopy was performed. This revealed a normal bladder. There was no sign of bladder damage, no sutures noted, and good strong jets of blue dye from left and right ureter openings. Cystoscope removed and a new Platt catheter placed. There was no vaginal bleeding evident. We then applied Tisseel to the cuff, 4 mL. At this stage, we then removed the robotic instruments, undocked the robot, ports removed, gas was allowed to escape. Incisions have all been injected with 0.5% Marcaine. Fascia closed carefully in the umbilical incision with several [id number] sutures and deep sutures into the left upper quadrant port as well with 0 Vicryl 4-0 subcuticular Monocryl closures and Dermabond to the skin closures and sponge and instrument counts were correct. I attest to the content of the Intraoperative Record and any orders documented therein. Any exception s are noted below.
[2016-11-13] MEDS ORDERED: DOCUSATE SODIUM 100 MG CAP PO SCH (21:00)
--- NOTE | 2016-11-16 10:27 | DISCHARGE SUMMARY ---
Debi had a total laparoscopic hysterectomy on 11/13/2016 she was discharged the same day several hours after the procedure. SUBJECTIVE: The patient was ambulating, tolerating an oral diet, oral pain medication was working, she had no nausea and she was voiding well. She had no extremity pain. PHYSICAL EXAMINATION: VITAL SIGNS: Stable. She was afebrile. IMPRESSION AND PLAN: Several hours post-surgery total laparoscopic hysterectomy which was uncomplicated. The patient met discharge criteria, was given discharge instructions. Percocet and Motrin and told to follow up in the office.
== END 2016-11-13 18:50 | disposition home or self-care (01) ==
LOC: C.ACU 09:32 → C.MS4N 11:35
PROVIDERS: ADMIT Obstetrics & Gynecology; ATTEND Obstetrics & Gynecology
DX: N80.0 Endometriosis of uterus (principal); R10.2 Pelvic and perineal pain; N92.0 Excessive and frequent menstruation with regular cycle; F32.9 Major depressive disorder, single episode, unspecified; N72 Inflammatory disease of cervix uteri; F17.210 Nicotine dependence, cigarettes, uncomplicated; G40.909 Epilepsy, unspecified, not intractable, without status epilepticus; Z82.49 Family history of ischemic heart disease and other diseases of the circulatory system; Z83.49 Family history of other endocrine, nutritional and metabolic diseases; Z79.899 Other long term (current) drug therapy
CPT/HCPCS: 58573; S2900

== ENCOUNTER → 2016-11-30 | Outpatient (CLI) | payer OTHER ==
[~2016-11-30] MED LIST changes: -CIPROFLOXACIN / D5W 400 MG IV SCH; +DOXY100C2 PO; +FLUO20CA37 PO; +HYDR-3419 PO; -LACTATED RINGER'S 1000ML 1,000 ML IV SCH; -METRONIDAZOLE 500MG / NSS IV SCH; +MTR600X PO; +OXYC-57 PO; +PROM25TA9 PO; +TOPI50TA16 PO
[2016-11-30 17:44] LABS: ALKALINE PHOSPHATASE 99 U/L (45-117); ALT/SGPT 19 U/L (12-78); AST/SGOT 8 U/L (15-37)
== END | disposition home or self-care (01) ==
LOC: C.LAB1850 15:44
PROVIDERS: ATTEND Psychiatry & Neurology Neurology
DX: G43.109 Migraine with aura, not intractable, without status migrainosus (principal)

== ENCOUNTER 2017-01-16 16:40 | Emergency (ER) | payer OTHER ==
[~2017-01-16] VITALS: Ht 172.7 cm; Wt 65.0 kg
[~2017-01-16 16:40] MED LIST changes: -DOXY100C2 PO; -FLUO20CA37 PO; -HYDR-3419 PO; -PROM25TA9 PO; -TOPI50TA16 PO
[2017-01-16 16:43] VITALS: TEMP 36.8; Ht 172.7 cm; Wt 65.0 kg
[2017-01-16] MEDS ORDERED: DiphenhydrAMINE HCL 50 MG/ML VIAL IV STA (17:00)
[2017-01-16] MEDS ORDERED: PROCHLORPERAZINE 5 MG/ML 2 ML VIAL IV STA (17:00)
[2017-01-16] MEDS ORDERED: DOXYCYCLINE HYCLATE 100 MG CAP PO ONE (17:00)
[2017-01-16] MEDS ORDERED: SODIUM CHLORIDE 0.9% 1000ML 1,000 ML IV STA (17:00)
[2017-01-16] MEDS ORDERED: PROM25TA9 PO (17:12)
[2017-01-16] MEDS ORDERED: TOPI50TA16 PO (17:13)
[2017-01-16] MEDS ORDERED: DOXY100C2 PO (18:24)
[2017-01-16 18:40] VITALS: BP 116/83; PULSE 89; O2SAT 97
--- NOTE | 2017-01-16 23:52 | EMERGENCY ROOM VISIT NOTE ---
History Report prepared by Sg: Virginia Smith Under the Supervision of: Dr. Robin Mckinney M.D. First contact with patient: 16:52 Chief Complaint: HEADACHE Stated Complaint: PAIN IN L ARM FROM TETNUS SHOT, MIGRAINE History of Present Illness The patient is a 36 year old female who presents to the Emergency Room with complaints of an episode of a headache starting two hours ago. The patient states that she has a history of migraines. She reports that this one is mainly on the right side and feels similar to previous. The patient reports that it is a throbbing pain. She states that she takes Topamax and Phenergan, but cannot take anymore this week. She notes that this is why she came to the ED this evening. She reports that her headache is worse with light. The patient notes that she normally has nausea and vomiting, but has not had these symptoms yet. She denies any fever and recent head injury. The patient complains of pain in her left arm from a Tetanus shot that she got 3 days ago. She reports that it seems to have gotten worse starting yesterday. She notes that it is worse when anything touches it. The patient states that she cannot even lie on her side because the pain is so bad. Source of History: patient Onset: two hours ago Position: head Quality: other (throbbing) Timing: other (episode) Modifying Factors (Worsening): other (light) Associated Symptoms: No fevers, No nausea, No vomiting Note: The patient complains of worsening left arm pain. The patient denies a recent head injury. Review of Systems See HPI for pertinent positives & negatives. A total of 10 systems reviewed and were otherwise negative. Past Medical & Surgical Medical Problems: (1) Anxiety State Nos (2) Cannabis Abuse-Unspec (3) Depression (4) Depressive Disorder Nec (5) Generalized-onset seizures (6) Menorrhagia (7) Migraine (8) Ovarian Cyst Nec/Nos Surgical Problems: (1) History of delivery (2) Tubal Ligation Status Family History Cancer Gallbladder disease Hypertension Lung disease Seizures Social History Smoking Status: Current Every Day Smoker Alcohol Use: occasionally Drug Use: marijuana Marital Status: single Housing Status: lives with family Occupation Status: unemployed Current/Historical Medications Scheduled Divalproex Sodium (Depakote), 500 MG PO QPM Divalproex Sodium (Depakote), 250 TAB PO QAM Doxycycline Hyclate (Vibramycin), 100 MG PO BID Fluoxetine Hcl (Prozac), 40 MG PO QAM Scheduled PRN Promethazine Hcl (Phenergan), 25 MG PO Q6H PRN for HEADACHE Topiramate (Topamax), 50 MG PO DAILY PRN for HEADACHE Allergies Coded Allergies: Coconut (Verified Allergy, Intermediate, THROAT IRRITATION, 11/13/16) Cephalexin (Verified Allergy, Unknown, RASH, 11/13/16) Uncoded Allergies: COD FISH (Allergy, Unknown, PREORBITAL SWELLING, 07/24/14) Physical Exam Vital Signs Date Time Temp Pulse Resp B/P (MAP) Pulse Ox O2 Delivery O2 Flow Rate FiO2 01/16/17 18:40 89 16 116/83 97 01/16/17 16:43 36.8 80 18 105/69 97 Room Air Physical Exam Constitutional: Vital signs reviewed. Eyes: Pupils are equal round reactive to light. Conjunctiva are noninjected. ENT: Pharynx is clear without erythema or exudate. Mucous membranes are moist. Neck supple without meningeal signs. Respiratory: Clear to auscultation bilaterally. Breath sounds are equal bilaterally. Cardiovascular: Regular rate and rhythm. No rubs or gallops. GI: Soft, nondistended and nontender. Bowel sounds are present. Musculoskeletal: No peripheral edema. 1 cm indurated area to the left upper arm. No cellulitis. No excessive warmth. No fluctuance. Integumentary: No cyanosis. Neurological: The patient is awake and alert. Cranial nerves II-XII are intact. Motor is 5 out of 5 all extremities. Sensation is intact to light touch all extremities. Normal speech. No pronator drift. Psychiatric: Normal affect. Medical Decision & Procedures Medications Administered Medications (Trade) Dose Ordered Sig/Olya Route Start Time Stop Time Status Last Admin Dose Admin Sodium Chloride 1,000 ml @ 999 mls/hr Q1H1M STAT IV 01/16/17 17:00 01/16/17 18:00 DC 01/16/17 17:34 999 MLS/HR Prochlorperazine Edisylate (Compazine Inj) 10 mg NOW STAT IV 01/16/17 17:00 01/16/17 17:02 DC 01/16/17 17:34 10 MG Diphenhydramine HCl (Benadryl Inj) 50 mg NOW STAT IV 01/16/17 17:00 01/16/17 17:02 DC 01/16/17 17:34 50 MG Doxycycline Hyclate (Vibramycin Cap) 100 mg ONE ONCE PO 01/16/17 17:00 01/16/17 17:02 DC 01/16/17 17:34 100 MG ED Course 1655: The patient was evaluated in room C9. A complete history and physical exam was performed. 1700: Ordered Vibramycin Cap 100 mg PO, Benadryl Inj 50 mg IV, Compazine Inj 10 mg IV, NSS 1000 ml @ 999 mls/hr IV. 1820: Upon reevaluation, the patient appeared to have improvement of her symptoms. I discussed tonight's findings with the patient. She verbalized agreement of the treatment plan. The patient was discharged home. Medical Decision This is a 36-year-old female presents with a headache and arm pain. Differential diagnosis includes migraine headache, cluster headache, tension headache, wound infection, post vaccination arm pain. I did perform a limited focused review of portions of the patient's old chart on the electronic medical record. The patient had a hysterectomy done in October 2016. She was here in the ED for a migraine in August of 2015. I did evaluate the patient as noted above. The patient is presenting with pain to her arm after she was vaccinated for tetanus three days ago. The area is slightly swollen and indurated but I do not see any signs of fluctuance or cellulitis. She does state that the pain is getting worse rather than better and so we will place her on mild antibiotic in case she has an early infection developing. She was given doxycycline as she is allergic to Keflex. She also complains of a headache. She describes it as typical for her migraine headaches. She has no fever or neurologic deficits to suggest meningitis or intracranial hemorrhage. She currently takes Phenergan and Topamax for her migraines. IV access was established. I did treat her with IV Compazine, Benadryl and normal saline. On reassessment the patient is feeling better and feels well enough for discharge. She was discharged with a prescription for doxycycline. Medication Reconcilliation Current Medication List: was personally reviewed by me Blood Pressure Screening Patient's blood pressure: Normal blood pressure Blood pressure disposition: Did not require urgent referral Impression Primary Impression: Acute headache Additional Impression: Left arm pain Scribe Attestation The scribe's documentation has been prepared under my direct and personally reviewed by me in its entirety. I confirm that the note above accurately reflects all work, treatment, procedures, and medical decision making performed by me. Departure Information Dispostion Home / Self-Care Prescriptions Doxycycline Hyclate (VIBRAMYCIN) 100 Mg Cap 100 MG PO BID for 10 Days, #20 CAP Prov: Robin Mckinney M.D. 01/16/17 Referrals Akira Gonsalez M.D. (PCP) Forms HOME CARE DOCUMENTATION FORM, IMPORTANT VISIT INFORMATION Patient Instructions My [facility] Additional Instructions You have been examined and treated today on an emergency basis only. This is not a substitute for, or an effort to provide, complete comprehensive medical care. It is impossible to recognize and treat all injuries or illnesses in a single emergency department visit. It is therefore important that you follow up closely with your physician. Call as soon as possible for an appointment. Return for worsening symptoms or if you develop fever, numbness or weakness on one side of your body, difficulties with your speech or walking, or any other concerning symptoms. Problem Qualifiers Primary Impression: Acute headache Headache type: unspecified Intractability: not intractable Qualified Codes : R51 - Headache
== END 2017-01-16 18:43 | disposition home or self-care (01) ==
LOC: C.EDB 16:41 → C.EDC 18:43
DX: R51 Headache (principal); M79.602 Pain in left arm; F41.9 Anxiety disorder, unspecified; F32.9 Major depressive disorder, single episode, unspecified; G40.409 Other generalized epilepsy and epileptic syndromes, not intractable, without status epilepticus; N83.209 Unspecified ovarian cyst, unspecified side; F17.200 Nicotine dependence, unspecified, uncomplicated; Z98.51 Tubal ligation status; Z79.899 Other long term (current) drug therapy; Z88.8 Allergy status to other drugs, medicaments and biological substances; Z91.018 Allergy to other foods; Z80.9 Family history of malignant neoplasm, unspecified; Z83.79 Family history of other diseases of the digestive system; Z82.49 Family history of ischemic heart disease and other diseases of the circulatory system; Z82.0 Family history of epilepsy and other diseases of the nervous system

== ENCOUNTER 2017-02-13 13:19 | Emergency (ER) | payer OTHER ==
[~2017-02-13] VITALS: Ht 167.6 cm; Wt 60.8 kg
[~2017-02-13 13:19] MED LIST changes: +DOXY100C2 PO; -MTR600X PO; -OXYC-57 PO; +PROM25TA9 PO; -PRVHFAIN; +TOPI50TA16 PO
[2017-02-13 13:30] VITALS: TEMP 36.9; Ht 167.6 cm; Wt 60.8 kg
--- NOTE | 2017-02-13 13:58 | EMERGENCY ROOM VISIT NOTE ---
History Report prepared by Sg: Rei Guzman Under the Supervision of: Dr. Missael Benton M.D. First contact with patient: 13:35 Chief Complaint: ABDOMINAL PAIN Stated Complaint: SEVERE ABDOMINAL PAIN Nursing Triage Summary: abd pain, nausea, started at approx 2 a.m. History of Present Illness The patient is a 36 year old female who presents to the Emergency Room with complaints of cramping suprapubic abdominal pain that began last night. She rates her pain a 10/10 in severity. At this time, the patient states that she and her partner had sex for the first time since her hysterectomy that was done 3 months ago. Prior to intercourse, she was asymptomatic. She believes that he may have "hit something" while being intimate. She is also experiencing nausea, back pain, and pain with urination. Her pain worsens with deep breaths. Her last bowel movement was yesterday and notes it to be normal. She has not had one today. She denies any abnormal vaginal bleeding or discharge. Source of History: patient Onset: last night Position: abdomen (suprapubic) Symptom Intensity: 10/10 Quality: cramping Timing: constant Modifying Factors (Worsening): breathing Associated Symptoms: + nausea, + back pain, + urinary symptoms Note: She denies any abnormal vaginal bleeding or discharge. Review of Systems All systems have been listed, reviewed, and are negative other than those previously mentioned. Please see Additional Medical History Sheet. Past Medical & Surgical Medical Problems: (1) Anxiety State Nos (2) Cannabis Abuse-Unspec (3) Depression (4) Depressive Disorder Nec (5) Generalized-onset seizures (6) Menorrhagia (7) Migraine (8) Ovarian Cyst Nec/Nos Surgical Problems: (1) History of delivery (2) Tubal Ligation Status Family History Cancer Gallbladder disease Hypertension Lung disease Seizures Social History Smoking Status: Current Every Day Smoker Alcohol Use: occasionally Drug Use: marijuana Marital Status: single Housing Status: lives with family Occupation Status: unemployed Current/Historical Medications Scheduled Divalproex Sodium (Depakote), 500 MG PO QPM Divalproex Sodium (Depakote), 250 TAB PO QAM Fluoxetine Hcl (Prozac), 40 MG PO QAM Fluoxetine Hcl (Prozac), 20 MG PO QAM Scheduled PRN Hydrocodon/Acetaminophen 5MG/300MG (Vicodin (5MG/300MG)), 1-2 TAB PO Q4H PRN for Pain Promethazine Hcl (Phenergan), 25 MG PO Q6H PRN for HEADACHE Topiramate (Topamax), 50 MG PO DAILY PRN for HEADACHE Allergies Coded Allergies: Coconut (Verified Allergy, Intermediate, THROAT IRRITATION, 02/13/17) Cephalexin (Verified Allergy, Unknown, RASH, 02/13/17) Morphine (Verified Adverse Reaction, Mild, erythema near IV site, 02/13/17) Uncoded Allergies: COD FISH (Allergy, Unknown, PREORBITAL SWELLING, 07/24/14) Physical Exam Vital Signs Date Time Temp Pulse Resp B/P (MAP) Pulse Ox O2 Delivery O2 Flow Rate FiO2 02/13/17 15:46 74 22 103/62 96 Room Air 02/13/17 14:25 88 02/13/17 13:30 36.9 99 18 90/66 96 Room Air Physical Exam GENERAL: Patient awake, alert, oriented x 3. Patient follows commands. Patient is in moderate to severe distress. Patient is tearful. Patient does not appear toxic. Patient is adequately hydrated and well-nourished. SKIN: No erythema, pallor, cyanosis or rash HEENT: Normal head, pupils equal, reactive to light and accommodation. LUNGS: Clear to auscultation. No wheezes, no rales, no rhonchi. HEART: No murmurs. No gallops. No rubs ABDOMEN: Diffuse tenderness that is more prominent in the suprapubic area. Healing scars on abdomen from a previous laparoscopic hysterectomy. No masses, no rebound, no hepatomegaly or splenomegaly. GYNECOLOGICAL: Patient has a small gaping area near the vaginal cuff. No blood. No signs of infection. Patient is slightly tender over the right adnexa area. No masses palpated. EXTREMITIES: No signs of trauma or infection. No pedal or pretibial edema. No calf or thigh tenderness. NEUROLOGIC: Cranial nerves II-XII within normal limits. No gross motor sensory function deficits. Medical Decision & Procedures Laboratory Results 02/13/17 14:04 02/13/17 14:04 Test 02/13/17 13:50 02/13/17 14:04 Urine Color YELLOW Urine Appearance CLEAR (CLEAR) Urine pH 8.5 (4.5-7.5) Urine Specific Wray 1.017 (1.000-1.030) Urine Protein NEG (NEG) Urine Glucose (UA) NEG (NEG) Urine Ketones NEG (NEG) Urine Occult Blood NEG (NEG) Urine Nitrite NEG (NEG) Urine Bilirubin NEG (NEG) Urine Urobilinogen NEG (NEG) Urine Leukocyte Esterase NEG (NEG) Urine Test NEG (NEG) Red Blood Count 4.33 M/uL (4.2-5.4) Mean Corpuscular Volume 89.6 fL (80-100) Mean Corpuscular Hemoglobin 30.9 pg (25-34) Mean Corpuscular Hemoglobin Concent 34.5 g/dl (32-36) RDW Standard Deviation 44.5 fL (36.4-46.3) RDW Coefficient of Variation 13.6 % (11.5-14.5) Mean Platelet Volume 10.6 fL (7.4-10.4) Anion Gap 8.0 mmol/L (3-11) Est Creatinine Clear Calc Drug Dose 110.2 ml/min Estimated GFR () 131.7 Estimated GFR (Non- 113.6 BUN/Creatinine Ratio 11.2 (10-20) Calcium Level 9.1 mg/dl (8.5-10.1) Lipase 119 U/L (73-393) Laboratory results as stated above per my review. Medications Administered Medications (Trade) Dose Ordered Sig/Olya Route Start Time Stop Time Status Last Admin Dose Admin Morphine Sulfate (MoRPHine SULFATE INJ) 6 mg Q1H PRN IV 02/13/17 14:00 02/27/17 13:59 02/13/17 14:13 6 MG Ondansetron HCl (Zofran Inj) 4 mg Q1HWA PRN IV 02/13/17 14:00 03/15/17 13:59 02/13/17 14:13 4 MG Diphenhydramine HCl (Benadryl Inj) 25 mg NOW STAT IV 02/13/17 14:23 02/13/17 14:24 DC 02/13/17 14:25 25 MG ED Course 1335: Past medical records reviewed. The patient was evaluated in room C1. A complete history and physical examination was performed. 1400: Zofran Inj 4 mg IV, Morphine Sulfate 6 mg IV 1423: Ordered Benadryl Inj 25 mg IV 1424: Ordered Benadryl Inj 50 mg .ROUTE 1539: As long as the patient does not move, she does not have any pain. 1542: I spoke with Dr. Tineo of OBGYN at this time. We discussed the patient's case. She will come to the ER to examine the patient. 1615: Dr. Tineo recommends that the patient does not receive antibiotics or have sex for two weeks. She will follow up with her in her office in the future. 1645: Ordered Dilaudid Inj 0.5 mg IV 1647: Upon reevaluation, the patient appeared to have improvement of her symptoms. I discussed today's findings with her. She verbalized agreement of the treatment plan. She was discharged home. Medical Decision Differential diagnoses considered include post-coital pain, UTI, vaginal tear, and infection. Examination of the vagina reveals a questionable small rent in the vaginal cuff. There are no signs of infection. There is no bleeding. There is no hematoma. Blood work was evaluated. Please see above. The patient was also evaluated by Dr. Tineo. She felt that the patient could go home without antibiotics. I will prescribe a small number of pills for home use. She is to follow-up with Dr. Moreira. [place] Drug Monitoring Program Search Results: patient reviewed within database, no issues identified Medication Reconcilliation Current Medication List: was personally reviewed by me Blood Pressure Screening Patient's blood pressure: Normal blood pressure Blood pressure disposition: Did not require urgent referral Consults Time Called: 1539 Consulting Physician: Dr. Tineo - CHUCKY Returned Call: 1542 Discussed the patient's case with her. She will examine the patient in the ER. Impression Primary Impression: Painful coitus, female Additional Impression: Status post hysterectomy Scribe Attestation The scribe's documentation has been prepared under my direction and personally reviewed by me in its entirety. I confirm that the note above accurately reflects all work, treatment, procedures, and medical decision making performed by me. Departure Information Dispostion Home / Self-Care Prescriptions Hydrocodon/Acetaminophen 5MG/300MG (VICODIN (5MG/300MG)) 1 Tab Tab 1-2 TAB PO Q4H Y for Pain, #10 TAB Prov: Missael Benton M.D. 02/13/17 Referrals Akira Gonsalez M.D. (PCP) Forms Call Back Authorization, HOME CARE DOCUMENTATION FORM, IMPORTANT VISIT INFORMATION Patient Instructions My [facility] [employer] Additional Instructions No intercourse for at least 3 weeks. 1-2 Vicodin every 4-6 hours as needed for pain. Do not drive or operate machinery while taking Vicodin. Problem Qualifiers
[2017-02-13] MEDS ORDERED: ONDANSETRON INJ 2 MG/ML 2 ML VIAL IV PRN (14:00)
[2017-02-13] MEDS ORDERED: MoRPHine SULFATE 10 MG/ML CARP/VIAL IV PRN (14:00)
[2017-02-13 14:17] LABS: HEMATOCRIT 38.8 % (37-47); MEAN CELL VOLUME 89.6 fL (80-100); MEAN CORPUSCULAR HEMOGLOBIN 30.9 pg (25-34); MEAN CORPUSCULAR HGB CONC 34.5 g/dl (32-36); MEAN PLATELET VOLUME 10.6 fL (7.4-10.4); PLATELET COUNT 210 K/uL (130-400); RED BLOOD COUNT 4.33 M/uL (4.2-5.4); WHITE BLOOD COUNT 14.72 K/uL (4.8-10.8)
[2017-02-13 14:23] LABS: MANUAL MICROSCOPIC REQUIRED? NO; REVIEW REQ? NO; URINE APPEARANCE CLEAR (CLEAR); URINE BILIRUBIN NEG (NEG); URINE COLOR YELLOW; URINE NITRITE NEG (NEG); URINE PH 8.5 (4.5-7.5); URINE SPECIFIC GRAVITY 1.017 (1.000-1.030); UROBILINOGEN NEG (NEG); ZZUR CULT IF INDIC CLEAN CATCH NO
[2017-02-13] MEDS ORDERED: DiphenhydrAMINE HCL 50 MG/ML VIAL IV STA (14:23)
[2017-02-13] MEDS ORDERED: DiphenhydrAMINE HCL 50 MG/ML VIAL ONE (14:24)
[2017-02-13 14:30] LABS: BUN/CREATININE RATIO 11.2 (10-20); CALCIUM 9.1 mg/dl (8.5-10.1); CREATININE 0.66 mg/dl (0.60-1.20)
[2017-02-13] MEDS ORDERED: FLUO20CA37 PO (14:49)
[2017-02-13] MEDS ORDERED: HYDR-3419 PO (16:29)
[2017-02-13] MEDS ORDERED: HYDROmorphone INJ 1 MG/ML SYR IV ONE (16:45)
[2017-02-13 17:04] VITALS: BP 100/60; PULSE 60; O2SAT 98
--- NOTE | 2017-02-13 17:47 | GYNECOLOGICAL CONSULTATION ---
DATE OF CONSULTATION: 02/13/2017 CONSULTING PHYSICIAN: Dr. Benton in the Emergency Room. CHIEF COMPLAINT: Pain with intercourse after hysterectomy. HISTORY OF PRESENT ILLNESS: Debi is a 36-year-old white female who underwent a total laparoscopic hysterectomy, bilateral salpingectomy and lysis of adhesions with cystoscopy on 11/13/2016. The surgery was uncomplicated with minimal blood loss and she was discharged the day of surgery. The patient returned to our office for her 2 and 8-week postop visits. At her 8-week postop visit, she had apparently attempted intercourse but her was unable to place finger even into the vagina. Dr. Moreira recommended that the patient wait 2 weeks. The patient indeed waited 4 weeks before attempting intercourse, which she attempted last night. With the initiation of sexual activity, there was no discomfort but with further deep thrusting, she felt significant 10/10 pain. He withdrew and they had to stop. She experienced no bleeding at all. She has had a discharge since the surgery, described as whitish to yellowish but without difficulty. She has noted some difficulty emptying her bladder. She notes that she has pain pretty much any time she moves. She describes the pain as up higher into her abdomen, like underneath her stomach area and points to the area above the umbilicus in the midline. Dr. Benton performed an exam and described it to me on the phone but I thought it best that I come down and evaluate the patient. OBSTETRICAL AND GYNECOLOGICAL HISTORY: As noted above. MEDICATIONS AT HOME: Include Depakote, doxycycline, Prozac and Topamax. ALLERGIES: COCONUT, CEPHALEXIN AND FISH. PAST MEDICAL HISTORY: Significant for seizure disorder, depression, and migraines. SOCIAL HISTORY: The patient admits to tobacco use, alcohol use and marijuana use. PAST SURGICAL HISTORY: Includes and tubal ligation. PHYSICAL EXAMINATION: GENERAL: This is a well-developed, well-nourished, somewhat malnourished appearing white female who appears to be lying comfortably in the Emergency Room bed. VITAL SIGNS: Temperature 36.9, blood pressure 103/62, pulse 74, respirations 22. ABDOMEN: Soft, nontender, nondistended. There is some mild tenderness to palpation in the midline upper abdomen as well as in the midline lower abdomen. There is no rebound or guarding. PELVIC: There is normal external female genitalia. Normal Bartholin, urethral and Gillis glands. The vagina is pink, moist, with fair rugae. The cuff is visualized. There is no blood at all in the vagina or coming from the cuff. There appears to be a 1 cm circular area of vaginal mucosa that appears to have potentially been pulled apart. It is hemostatic. On bimanual exam, it is tender at the top of the vaginal cuff but there is no mass. I cannot place my finger through the vaginal cuff. Rectovaginal exam is deferred. ASSESSMENT: This is a 36-year-old white female smoker who is 12 weeks out from a total laparoscopic hysterectomy, bilateral salpingectomy, lysis of adhesions and cystoscopy. She attempted intercourse last night with significant pain but no bleeding. There appears to be some mucosal edge separation of the vaginal cuff but there appears to be no dehiscence of the vaginal cuff. Therefore, I recommend that patient no longer engage in intercourse and she can be discharged home to follow up in the office in 2 weeks. I will send a note to Dr. Moreira in regards to this patient. He will call her with an appointment for further reevaluation. If the patient has further increasing pain, vaginal bleeding, significantly increasing discharge, fevers or chills, she is to call us back. She shows no signs or symptoms of vaginal cuff infection and and I do not believe she has a hematoma as there is no mass palpable at the top of the vaginal cuff.
== END 2017-02-13 17:05 | disposition home or self-care (01) ==
LOC: C.EDB 13:20 → C.EDC 17:05
DX: N94.10 Unspecified dyspareunia (principal); Z90.710 Acquired absence of both cervix and uterus; N83.209 Unspecified ovarian cyst, unspecified side; F41.9 Anxiety disorder, unspecified; F32.9 Major depressive disorder, single episode, unspecified; G40.409 Other generalized epilepsy and epileptic syndromes, not intractable, without status epilepticus; F17.200 Nicotine dependence, unspecified, uncomplicated; Z98.51 Tubal ligation status; Z79.899 Other long term (current) drug therapy; Z88.5 Allergy status to narcotic agent; Z88.8 Allergy status to other drugs, medicaments and biological substances; Z91.018 Allergy to other foods; Z80.9 Family history of malignant neoplasm, unspecified; Z83.79 Family history of other diseases of the digestive system; Z82.49 Family history of ischemic heart disease and other diseases of the circulatory system; Z82.0 Family history of epilepsy and other diseases of the nervous system

== ENCOUNTER 2017-09-06 16:35 | Emergency (ER) | payer OTHER ==
[~2017-09-06] VITALS: Ht 175.3 cm; Wt 62.8 kg
[~2017-09-06 16:35] MED LIST changes: -DOXY100C2 PO; +FLUO20CA37 PO
[2017-09-06 16:41] VITALS: TEMP 36.8; Ht 175.3 cm; Wt 62.8 kg
[2017-09-06] MEDS ORDERED: ACETAMINOPHEN 500 MG TAB PO STA (17:16)
[2017-09-06] MEDS ORDERED: KETOROLAC TROMETHAMINE 30 MG/ML VIAL IV STA (17:16)
[2017-09-06] MEDS ORDERED: SODIUM CHLORIDE 0.9% 1000ML 1,000 ML IV STA (17:16)
[2017-09-06] MEDS ORDERED: DIVA250T4 PO (17:20)
--- NOTE | 2017-09-06 17:47 | DIAGNOSTIC IMAGING REPORT ---
CHEST ONE VIEW PORTABLE CLINICAL HISTORY: 37 years-old Female presenting with Evaluate Fever/Sepsis. TECHNIQUE: Portable upright AP view of the chest was obtained. COMPARISON: 05/28/2016. FINDINGS: Cardiomediastinal silhouette normal. Lungs and pleural spaces clear. Osseous structures normal. Upper abdomen normal. IMPRESSION: 1. No acute cardiopulmonary disease. Electronically signed by: Juan Kwan M.D. 09/06/2017 5:45 PM Dictated Date/Time: 09/06/2017 5:45 PM
[2017-09-06 18:11] LABS: BASO % 0.6 %; BASO ABS # 0.05 K/uL (0-0.2); EOS % 2.8 %; EOS ABS # 0.25 K/uL (0-0.5); HEMATOCRIT 38.8 % (37-47); HEMOGLOBIN 13.5 g/dL (12.0-16.0); IG# 0.01 K/uL (0.00-0.02); LYMPH % 28.1 %; LYMPH ABS # 2.51 K/uL (1.2-3.4); MEAN CELL VOLUME 91.3 fL (80-100); MEAN CORPUSCULAR HEMOGLOBIN 31.8 pg (25-34); MEAN CORPUSCULAR HGB CONC 34.8 g/dl (32-36); MEAN PLATELET VOLUME 10.2 fL (7.4-10.4); MONO % 7.5 %; MONO ABS # 0.67 K/uL (0.11-0.59); NEUT % 60.9 %; NEUT ABS # 5.45 K/uL (1.4-6.5); PLATELET COUNT 212 K/uL (130-400); RED CELL DISTRIBUTION WIDTH CV 13.1 % (11.5-14.5); RED CELL DISTRIBUTION WIDTH SD 43.6 fL (36.4-46.3); WHITE BLOOD COUNT 8.94 K/uL (4.8-10.8)
[2017-09-06 18:34] LABS: CREATININE 0.71 mg/dl (0.60-1.20)
[2017-09-06 19:02] LABS: INFLUENZA B ANTIGEN Neg for Influ B (NEG)
--- NOTE | 2017-09-06 19:19 | EMERGENCY ROOM VISIT NOTE ---
History Report prepared by Adalidibjohnny: Melissa Wynn Under the Supervision of: Dr. Ren Nicolas D.O. First contact with patient: 17:10 Chief Complaint: FLU LIKE SX Stated Complaint: BLISTERS IN MOUTH, ACHES, HEADACHE, EAR PAIN History of Present Illness The patient is a 37 year old female who presents to the Emergency Room with complaints of persistent flu like symptoms that started yesterday. She complains of the chills, body aches, ear pain, a sore throat, headache and blisters in her mouth. She denies any recent sick contacts. She has not checked her temperature. The patient admits to a history of seizures, for which she takes Depakote. Source of History: patient Onset: yesterday Position: other (global) Timing: other (persistent) Associated Symptoms: + chills, + headache, + sorethroat, No fevers Review of Systems See HPI for pertinent positives & negatives. A total of 10 systems reviewed and were otherwise negative. Past Medical & Surgical Medical Problems: (1) Anxiety State Nos (2) Cannabis Abuse-Unspec (3) Depression (4) Depressive Disorder Nec (5) Generalized-onset seizures (6) Menorrhagia (7) Migraine (8) Ovarian Cyst Nec/Nos Surgical Problems: (1) History of delivery (2) Tubal Ligation Status Family History Cancer Gallbladder disease Hypertension Lung disease Seizures Social History Smoking Status: Current Every Day Smoker Alcohol Use: occasionally Drug Use: marijuana Marital Status: single Housing Status: lives with family Occupation Status: unemployed Current/Historical Medications Scheduled Divalproex Sodium (Depakote), 500 MG PO QPM Divalproex Sodium (Depakote Delay Rel), 250 MG PO QAM Fluoxetine Hcl (Prozac), 40 MG PO QAM Fluoxetine Hcl (Prozac), 20 MG PO QAM Scheduled PRN Promethazine Hcl (Phenergan), 25 MG PO Q6H PRN for HEADACHE Topiramate (Topamax), 50 MG PO DAILY PRN for HEADACHE Allergies Coded Allergies: Coconut (Verified Allergy, Intermediate, THROAT IRRITATION, 09/06/17) Cephalexin (Verified Allergy, Unknown, RASH, 09/06/17) Morphine (Verified Adverse Reaction, Mild, erythema near IV site, 02/13/17) Uncoded Allergies: COD FISH (Allergy, Unknown, PREORBITAL SWELLING, 07/24/14) Physical Exam Vital Signs Date Time Temp Pulse Resp B/P (MAP) Pulse Ox O2 Delivery O2 Flow Rate FiO2 09/06/17 16:41 36.8 84 18 119/80 97 Room Air Physical Exam CONSTITUTIONAL/VITAL SIGNS: Reviewed / noted above. GENERAL: Non-toxic in appearance. INTEGUMENTARY: Warm, dry, and [place]. HEAD: Normocephalic. EYES: without scleral icterus or trauma. ENT/OROPHARYNX: There is noted to be some posterior oropharyngeal erythema, with few small sores on the lower lip, patient is edentulous LYMPHADENOPATHY/NECK: Is supple without lymphadenopathy or meningismus. RESPIRATORY: Lungs clear and equal. CARDIOVASCULAR: Regular rate and rhythm. GI/ABDOMEN: Soft and nontender. No organomegaly or pulsatile mass. No rebound or guarding. Normal bowel sounds. EXTREMITIES: Warm and well perfused. BACK: No CVA tenderness. NEUROLOGICAL: Intact without focal deficits. PSYCHIATRIC: normal affect. MUSCULOSKELETAL: Normally developed with good muscle tone. Medical Decision & Procedures ER Provider Diagnostic Interpretation: Radiology results as stated below per my review and radiologist interpretation: CHEST ONE VIEW PORTABLE CLINICAL HISTORY: 37 years-old Female presenting with Evaluate Fever/Sepsis. TECHNIQUE: Portable upright AP view of the chest was obtained. COMPARISON: 05/28/2016. FINDINGS: Cardiomediastinal silhouette normal. Lungs and pleural spaces clear. Osseous structures normal. Upper abdomen normal. IMPRESSION: 1. No acute cardiopulmonary disease. Electronically signed by: Juan Kwan M.D. 09/06/2017 5:45 PM Laboratory Results 09/06/17 17:55 Red Blood Count 4.25, Mean Corpuscular Volume 91.3, Mean Corpuscular Hemoglobin 31.8, Mean Corpuscular Hemoglobin Concent 34.8, Mean Platelet Volume 10.2, Neutrophils (%) (Auto) 60.9, Lymphocytes (%) (Auto) 28.1, Monocytes (%) (Auto) 7.5, Eosinophils (%) (Auto) 2.8, Basophils (%) (Auto) 0.6, Neutrophils # (Auto) 5.45, Lymphocytes # (Auto) 2.51, Monocytes # (Auto) 0.67, Eosinophils # (Auto) 0.25, Basophils # (Auto) 0.05 09/06/17 17:55 Test 09/06/17 17:55 09/06/17 18:00 White Blood Count 8.94 K/uL (4.8-10.8) Red Blood Count 4.25 M/uL (4.2-5.4) Hemoglobin 13.5 g/dL (12.0-16.0) Hematocrit 38.8 % (37-47) Mean Corpuscular Volume 91.3 fL (80-100) Mean Corpuscular Hemoglobin 31.8 pg (25-34) Mean Corpuscular Hemoglobin Concent 34.8 g/dl (32-36) Platelet Count 212 K/uL (130-400) Mean Platelet Volume 10.2 fL (7.4-10.4) Neutrophils (%) (Auto) 60.9 % Lymphocytes (%) (Auto) 28.1 % Monocytes (%) (Auto) 7.5 % Eosinophils (%) (Auto) 2.8 % Basophils (%) (Auto) 0.6 % Neutrophils # (Auto) 5.45 K/uL (1.4-6.5) Lymphocytes # (Auto) 2.51 K/uL (1.2-3.4) Monocytes # (Auto) 0.67 K/uL (0.11-0.59) Eosinophils # (Auto) 0.25 K/uL (0-0.5) Basophils # (Auto) 0.05 K/uL (0-0.2) RDW Standard Deviation 43.6 fL (36.4-46.3) RDW Coefficient of Variation 13.1 % (11.5-14.5) Immature Granulocyte % (Auto) 0.1 % Immature Granulocyte # (Auto) 0.01 K/uL (0.00-0.02) Anion Gap 7.0 mmol/L (3-11) Est Creatinine Clear Calc Drug Dose 107.6 ml/min Estimated GFR () 126.1 Estimated GFR (Non- 108.8 BUN/Creatinine Ratio 13.7 (10-20) Calcium Level 9.0 mg/dl (8.5-10.1) Valproic Acid (Depakene) Level < 3 mcg/ml (50-100) Influenza Type A Antigen Neg for Influ A (NEG) Influenza Type B Antigen Neg for Influ B (NEG) Laboratory results as stated above per my review. Medications Administered Medications (Trade) Dose Ordered Sig/Olya Route Start Time Stop Time Status Last Admin Dose Admin Sodium Chloride 1,000 ml @ 999 mls/hr Q1H1M STAT IV 09/06/17 17:16 09/06/17 18:16 DC 09/06/17 18:12 999 MLS/HR Acetaminophen (Tylenol Tab) 1,000 mg NOW STAT PO 09/06/17 17:16 09/06/17 17:18 DC 09/06/17 18:14 1,000 MG Ketorolac Tromethamine (Toradol Inj) 30 mg NOW STAT IV 09/06/17 17:16 09/06/17 17:18 DC 09/06/17 18:13 30 MG ED Course 171: Previous medical records were reviewed. The patient was evaluated in room B4B. A complete history and physical examination was performed. 171: Toradol 30 mg IV, Tylenol 1000 mg PO, NSS 1000 ml @ 999 mls/hr IV. 0: On reevaluation, the patient is feeling well and ready to go home. I discussed the results and findings with the patient. She verbalized agreement of the treatment plan. The patient was discharged home. Medical Decision Differential includes viral illness, influenza, streptococcal pharyngitis, meningitis, pneumonia, sinusitis, UTI, pyelonephritis, and otitis media. This is a 37-year-old female who presents to the ED with a chief complaint of flulike symptoms. She reports a headache, generalized achiness, sore throat, ear pain and some blisters on her mouth. She states that her symptoms started yesterday. Her vital signs here are normal. Her physical exam as noted above. CBC is normal and a chest x-ray did not show acute process. PRP was unremarkable. Valproic acid level was not present. She must not be compliant with her antiseizure medications. Flu swab was negative. The patient was treated with IV fluids, IV Toradol and p.o. Tylenol. She was told the results of the test. She is felt to be stable for discharge and outpatient follow-up. She was told to follow-up with her doctor for recheck in 1-2 days. Medication Reconcilliation Current Medication List: was personally reviewed by me Blood Pressure Screening Patient's blood pressure: Normal blood pressure Blood pressure disposition: Did not require urgent referral Impression Primary Impression: Viral syndrome Scribe Attestation The scribe's documentation has been prepared under my direction and personally reviewed by me in its entirety. I confirm that the note above accurately reflects all work, treatment, procedures, and medical decision making performed by me. Departure Information Dispostion Home / Self-Care Referrals Akira Gonsalez M.D. (PCP) Patient Instructions My [facility] Additional Instructions Take Tylenol Motrin as needed for symptoms. Use [id number] flu and cold medicine. Follow-up with your doctor in 12-3 days for recheck. Follow-up with your doctor for further care and evaluation in 1-2 days. Return to the emergency department for worsening or new symptoms or any concerns. You have been examined and treated today on an emergency basis only. This is not a substitute for, or an effort to provide, complete comprehensive medical care. It is impossible to recognize and treat all injuries or illnesses in a single emergency department visit. It is therefore important that you follow up closely with your doctor. Call as soon as possible for an appointment.
[2017-09-06 19:27] VITALS: BP 118/72; PULSE 88; O2SAT 98
== END 2017-09-06 19:29 | disposition home or self-care (01) ==
LOC: C.EDB 16:36
DX: R68.89 Other general symptoms and signs (principal); F17.200 Nicotine dependence, unspecified, uncomplicated; F12.90 Cannabis use, unspecified, uncomplicated; F41.9 Anxiety disorder, unspecified; F32.9 Major depressive disorder, single episode, unspecified; Z91.018 Allergy to other foods; Z88.5 Allergy status to narcotic agent; Z88.8 Allergy status to other drugs, medicaments and biological substances

== ENCOUNTER 2024-05-17 22:43 | Inpatient (IN) ==
--- NOTE | 2024-05-17 23:48 | Emergency Department Note ---
Impression & Plan Chronic left hip pain, Cancer, metastatic to bone ED Provider Note ED Provider Note NAME: TJ BUCKLEY AGE:44 SEX: Female : 1980 ARRIVES VIA: Private vehicle INFORMANT: Patient ED PROVIDER(s): Karla Rod DO CHIEF COMPLAINT: Increased pain of the left hip HPI: This is a 44-year-old female who presents emerged part due to increased pain at the left hip. Patient with known breast cancer metastatic to bone and multiple spots including the left hip. She states she has been having chronic left hip pain for many months. She recently moved back to the area approximately 5 months ago after initially being diagnosed and treated while living in [place]. She follows with Dr. Vital locally. She has been taking oxycodone/acetaminophen 10/325 mg. She states she is taking that about every 4 hours although does note constipation. She has not been using any other topical agents or NSAIDs. She states narcotics make her nauseated so she does have Zofran at home that she takes. Her last dose of medication was at 9:30 PM. She states her pain worsened this afternoon. No change in activity or trauma although she does admit she may have been more active here preparing for the holiday. She is scheduled to follow-up next week on for another evaluation. She is not currently undergoing radiation or chemotherapy. PAST MEDICAL HISTORY:See Below PAST SURGICAL HISTORY:See Below FAMILY HISTORY:See Below SOCIAL HISTORY:See Below HOME MEDICATIONS:See Below ALLERGIES:See Below VITALS:See Below PHYSICAL EXAMINATION: GENERAL: alert, unwell appearing, well nourished, no distress, non-toxic EYE EXAM: normal conjunctiva, PERRL and EOM's grossly intact OROPHARYNX: no exudate, no erythema, lips, buccal mucosa, and tongue normal and mucous membranes are moist, edentulous NECK: supple, no nuchal rigidity, no adenopathy, non-tender LUNGS: Clear to auscultation. Normal chest wall mechanics, no w/r/r HEART: no murmurs, S1 normal and S2 normal ABDOMEN: abdomen soft, non-tender, normo-active bowel sounds, no masses, no rebound or guarding. BACK: Back is symmetrical on inspection and there is no deformity, no midline tenderness, pain with palpation along the left low back/left posterior hip SKIN: no rashes, petechiae, orbruising UPPER EXTREMITIES: upper extremities are grossly normal. FROM, nml pulses b/l. LOWER EXTREMITIES: No pitting edema. FROM RLE, nml pulses b/l. Left lower extremity held in flexion at the hip and knee which patient states is a position of comfort, no obvious trauma or deformity, no joint effusions, compartments soft, decreased range of motion of the left hip secondary to pain, pain with palpation over the lateral aspect of the left hip NEURO EXAM: Normal sensorium, cranial nerves II-XII grossly intact, normal speech, no facial droop,nogross weakness of arms, no gross weakness of legs. Gross sensation intact. No ataxia. Vital Signs: reviewed and remarkable Differential Diagnosis: Cancer related pain, worsening metastatic disease, occult fracture, dislocation, referred pain from intra-abdominal source, avascular necrosis, septic arthritis, as well as others were considered MEDICAL DECISION MAKING: This is a 44-year-old female who presents due to worsening left hip pain. She has known severe metastatic disease and is already on chronic pain medication at home. After discussion at bedside, labs drawn and sent, IV established, patient monitored on telemetry. She was given IV Dilaudid, IV Tylenol, and Lidoderm patch applied. She was sent for CT of the abdomen and pelvis additionally to evaluate for worsening disease as well as rule out other intra-abdominal pathology. Patient given a second dose of IV Dilaudid as well as oral Robaxin. Given persistent symptoms and complicated history and need for further pain management, case discussed with hospitalist team for additional evaluation and management. Consultation(s): 0415: Discussed with Dr. Hunt, [facility] hospitalist team, for additional evaluation and management ER Treatment Provided: See below Diagnostics Interpreted By Me: -Cardiac Monitoring: An order was placed for continuous cardiac monitoring. The monitor shows a rate of 82 with normal sinus rhythm. -Laboratory studies: As stated above and show below. -Imaging studies: ct a/p - no sbo, no diverticulitis Triage Nursing Note Reviewed Prior/Outside Records Reviewed Past Med/Surg History Problem List Cancer, metastatic to bone (Acute) Chronic left hip pain (Acute) Migraine headache (Chronic 06/08/11) Pseudoseizures (Chronic) Sciatica (Acute) Bipolar disorder (Chronic) Anxiety (Chronic) Seizure disorder (Chronic) Social History Smoking Status: Never smoker Preferred Language: Cypriot Feels Safe at Home: Yes Allergies Allergies Allergy/AdvReac Type Severity Reaction Status Date / Time coconut Allergy Intermediate THROAT Verified 03/12/20 09:24 IRRITATION cephalexin Allergy Unknown RASH Verified 03/12/20 09:24 COD FISH Allergy Unknown PREORBITAL Uncoded 03/12/20 09:24 SWELLING Home Meds Home Medications Medication Instructions Recorded Confirmed anastrozole 1 mg tablet 1 mg PO DAILY 05/18/24 05/18/24 oxycodone-acetaminophen 10 mg-325 1 tab PO Q4H PRN Pain 05/18/24 05/18/24 mg tablet Results & Data (ED) Vital Signs Vital Signs - 24 hr 05/17/24 22:45 05/17/24 23:00 05/18/24 00:04 Temperature 37.2 C Temperature Source Temporal Artery Scan Pulse Rate 93 H 75 Pulse Rate [Right Finger] 85 Pulse Rhythm [Right Finger] Regular Pulse Strength [Right Finger] Normal Respiratory Rate 18 18 Respiratory Effort / Characteristics Non-Labored Spontaneous Respiratory Depth Normal Respiratory Pattern Blood Pressure 120/86 Blood Pressure [Left Arm] 99/69 L Blood Pressure Mean 97 Blood Pressure Mean [Left Arm] 79 Blood Pressure Position [Left Arm] Lying Pulse Oximetry 99 98 Oxygen Delivery Method Room Air Room Air Sepsis Recent Fever Within 48 Hours No Sepsis New/Unexplained Change in Mental Status No Sepsis Action Taken by Nursing No Action Required 05/18/24 01:40 05/18/24 03:08 05/18/24 04:07 Temperature Temperature Source Pulse Rate 85 Pulse Rate [Right Finger] 82 74 Pulse Rhythm [Right Finger] Regular Regular Pulse Strength [Right Finger] Normal Normal Respiratory Rate 24 25 H Respiratory Effort / Characteristics Non-Labored Non-Labored Respiratory Depth Normal Normal Respiratory Pattern Regular Regular Blood Pressure Blood Pressure [Left Arm] 88/58 L 102/60 Blood Pressure Mean Blood Pressure Mean [Left Arm] 68 74 Blood Pressure Position [Left Arm] Lying Lying Pulse Oximetry 94 99 Oxygen Delivery Method Room Air Room Air Sepsis Recent Fever Within 48 Hours Sepsis New/Unexplained Change in Mental Status Sepsis Action Taken by Nursing 05/18/24 05:00 Temperature Temperature Source Pulse Rate Pulse Rate [Right Finger] 77 Pulse Rhythm [Right Finger] Regular Pulse Strength [Right Finger] Normal Respiratory Rate 16 Respiratory Effort / Characteristics Non-Labored Respiratory Depth Normal Respiratory Pattern Regular Blood Pressure Blood Pressure [Left Arm] 99/60 L Blood Pressure Mean Blood Pressure Mean [Left Arm] 73 Blood Pressure Position [Left Arm] Sitting Pulse Oximetry 96 Oxygen Delivery Method Room Air Sepsis Recent Fever Within 48 Hours Sepsis New/Unexplained Change in Mental Status Sepsis Action Taken by Nursing Laboratory Data 05/17/24 23:28 05/17/24 23:28 Lab Results 05/17/24 Range/Units 23:28 WBC 7.17 (4.8-10.8) K/ul RBC 3.85 L (4.20-5.40) M/uL Hgb 11.9 L (12.0-16.0) g/dl Hct 35.0 L (37.0-47.0) % MCV 90.9 (80.0-100.0) fL MCH 30.9 (25.0-34.0) pg MCHC 34.0 (32.0-36.0) g/dL RDW Std Deviation 42.8 (36.4-46.3) fL RDW Coeff of Parth 13.1 (11.5-14.5) % Plt Count 225 (130-400) K/uL MPV 8.9 L (9.4-12.4) fL Immature Gran % (Auto) 0.3 % Neut % (Auto) 53.7 % Lymph % (Auto) 27.8 % Schley % (Auto) 12.8 % Eos % (Auto) 3.9 % Baso % (Auto) 1.5 % Neut # (Auto) 3.85 (1.40-6.50) K/uL Lymph # (Auto) 1.99 (1.20-3.40) K/uL Schley # (Auto) 0.92 H (0.11-0.59) K/uL Eos # (Auto) 0.28 (0.00-0.50) K/uL Baso # (Auto) 0.11 (0.00-0.20) K/uL Immature Gran # (Auto) 0.02 (0.01-0.20) K/uL Sodium 140 (136-145) mmol/L Potassium 3.9 (3.5-5.1) mmol/L Chloride 106 (98-107) mmol/L Carbon Dioxide 28 (21-32) mmol/L Anion Gap 6 (3-11) BUN 14 (6-23) mg/dl Creatinine 0.83 (0.6-1.2) mg/dl Est Cr Clr Drug Dosing 84.4 ml/min eGFR 89.09 BUN/Creatinine Ratio 16.9 (10-20) Glucose 101 H (70-99(Fasting)) mg/dl Calcium 8.7 (8.6-10.3) mg/dl Magnesium 2.3 (1.7-2.4) mg/dl Total Bilirubin 0.3 (0.2-1.0) mg/dl AST 15 (13-39) U/L ALT 8 (7-52) U/L Alkaline Phosphatase 93 (34-104) U/L Total Protein 7.1 (6.0-8.3) gm/dl Albumin 4.4 (3.4-5.0) gm/dl Globulin 2.7 (2.5-4.0) gm/dl Albumin/Globulin Ratio 1.6 (0.9-2) Administered Medications Sodium Chloride (Nss) 1,000 mls @ 250 mls/hr IV .Q4H ABBI Stop: 05/18/24 23:29 Last Admin: 05/18/24 04:18 Dose: 250 mls/hr Documented By: Infusion: 05/18/24 03:14 Dose: Infused Documented By: Admin: 05/18/24 00:02 Dose: 250 mls/hr Documented By: DEWEY Discontinued Medications Diphenhydramine HCl (Diphenhydramine 50 Mg/Ml Vial) 12.5 mg IV NOW STA Stop: 05/17/24 23:28 Last Admin: 05/17/24 23:52 Dose: 12.5 mg Documented By: DEWEY Hydromorphone HCl (Hydromorphone Inj 0.5 Mg/0.5 Ml Syr) 0.25 mg IV NOW STA Stop: 05/17/24 23:28 Last Admin: 05/17/24 23:51 Dose: 0.25 mg Documented By: DEWEY Hydromorphone HCl (Hydromorphone Inj 0.5 Mg/0.5 Ml Syr) 0.25 mg IV NOW STA Stop: 12/26/24 02:53 Last Admin: 05/18/24 03:09 Dose: 0.25 mg Documented By: DEWEY Ioversol (Optiray 320 100ml) 94 ml IV ONCE ONE Stop: 05/18/24 01:14 Last Admin: 05/18/24 01:14 Dose: 94 ml Documented By: FERNANDO Ketorolac Tromethamine (Ketorolac Tromethamine 15 Mg/Ml Vial) 10 mg IV NOW ONE Stop: 05/18/24 02:53 Last Admin: 05/18/24 03:09 Dose: 10 mg Documented By: DEWEY Lidocaine (Lidocaine 5% 1 Patch) 1 patch TD NOW STA Stop: 05/17/24 23:28 Last Admin: 05/17/24 23:52 Dose: 1 patch Documented By: DEWEY Methocarbamol (Methocarbamol 500 Mg Tablet) 500 mg PO NOW STA Stop: 05/18/24 02:53 Last Admin: 05/18/24 04:17 Dose: 500 mg Documented By: KEARA Metoclopramide HCl (Metoclopramide Hcl Inj 5 Mg/Ml 2 Ml Vial) 5 mg IV ONE ONE Stop: 05/17/24 23:28 Last Admin: 05/17/24 23:51 Dose: 5 mg Documented By: DEWEY Imaging Data Radiologist's Impression: Abdomen/Pelvis CT 05/17/24 23:27 EXAM: CT abd pelvis IV con only CLINICAL HISTORY: Pt reports she has stage 4 breast cancer to bones, reports it is into L hip and goes down into ankle, reports pain worsened today currently undergoing treatment 94 ml opti 320 PW TECHNIQUE: CT of the abdomen and pelvis was performed with contrast, with the following protocol: axial images with, and reconstructed coronal and sagittal images. One of the following dose reduction techniques was utilized for this exam: Automated exposure control, adjustment of the mA and/or kV according to patient size, and use of iterative reconstruction. COMPARISON: Comparison is made with previous imaging dated 04/17/2024. FINDINGS: Abdomen: Liver: Normal in size, shape, and density. No focal lesions, cysts, or masses were identified. Hepatic vasculature and biliary ducts are unremarkable. Gallbladder and Biliary System: The gallbladder is normal in size and shape. No wall thickening, pericholecystic fluid, or gallstones were identified. The common bile duct is normal in caliber without dilation. Pancreas: Pancreatic head, body, and tail are visualized and appear normal in size and density. No pancreatic masses or calcifications were noted. The pancreatic duct is not dilated. Spleen: Normal in size, shape, and density. No splenic lesions or masses were identified. Kidneys and Adrenal Glands: Both kidneys are normal in size, shape, and position. Cortical thickness is within normal limits. No renal calculi or hydronephrosis. Adrenal glands are unremarkable with no evidence of masses or hyperplasia. Pelvis: Urinary Bladder: Normal in contour and wall thickness. No intraluminal lesions identified. Uterus removed surgically. Ovaries:Not well visualized but no gross abnormalities noted Two dense objects noted in pelvic region, each measuring 1.6cm, likely surgical material. Bowel: The visualized bowel loops are normal in caliber and appearance. No evidence of bowel obstruction or wall thickening. Bones and Soft Tissues: Multiple osteosclerotic lesions involving L1 vertebral body, S1 sacral vertebra, and posterior sacral element, left iliac bone involving the ischium, iliac crest and posterior acetabular column, Small foci of osteosclerotic lesion at right femoral head and left greater trochanter, All lesions are mainly sclerotic with little lytic component, no soft tissue component. No fractures were identified. Lower chest cuts showing faint posterior dependent atlectatic changes. IMPRESSION: Multiple osteosclerotic lesions involving L1 vertebral body, S1 sacral vertebra, and posterior sacral element. Left iliac bone involving the ischium, iliac crest and posterior acetabular column. Small foci of osteosclerotic lesion at right femoral head and left greater trochanter. Two dense objects noted in pelvic region, each measuring 1.6cm, likely surgical material, from removed uterus possibly ovaries. Findings are stable, with no significant interval changes. Electronically signed by July Samuels 05-18-2024 02:36 AM Discharge Plan Visit Data Chief Complaint: Leg Injury/Pain Stated Complaint: PAIN LT LEG, GOING DOWN TO ANKLE, CANCER ED Provider: Karla Rod Discharge Problem: Chronic left hip pain, Cancer, metastatic to bone Forms Stand Alone Forms: My [facility] Prescriptions Prescriptions: No Action anastrozole 1 mg tablet 1 mg PO DAILY oxycodone-acetaminophen 10-325 mg tablet 1 tab PO Q4H PRN (Reason: Pain) Referrals Referrals: PCP,NO [Primary Care Provider] -
[2024-05-17] MEDS: HYDROmorphone INJ 0.5 MG/0.5 ML SYR IV STA (23:51)
[2024-05-17] MEDS: METOCLOPRAMIDE HCL INJ 5 MG/ML 2 ML VIAL IV ONE (23:51)
[2024-05-17 23:52] LABS: Basophils # (auto) 0.11 K/uL (0.00-0.20); Basophils % (auto) 1.5 %; Eosinophils # (auto) 0.28 K/uL (0.00-0.50); Eosinophils % (auto) 3.9 %; Hemoglobin 11.9 g/dl (12.0-16.0); Immature Granulocytes # (auto) 0.02 K/uL (0.01-0.20); Immature Granulocytes % (auto) 0.3 %; Lymphocytes # (auto) 1.99 K/uL (1.20-3.40); Lymphocytes % (auto) 27.8 %; Mean Corpuscular Hemoglobin 30.9 pg (25.0-34.0); Mean Corpuscular Volume 90.9 fL (80.0-100.0); Mean Platelet Volume 8.9 fL (9.4-12.4); Monocytes # (auto) 0.92 K/uL (0.11-0.59); Monocytes % (auto) 12.8 %; Neutrophils # (auto) 3.85 K/uL (1.40-6.50); Neutrophils % (auto) 53.7 %; Platelet Count 225 K/uL (130-400); RDW Coefficient of Variation 13.1 % (11.5-14.5); RDW Standard Deviation 42.8 fL (36.4-46.3); Red Blood Count 3.85 M/uL (4.20-5.40); White Blood Count 7.17 K/ul (4.8-10.8)
[2024-05-17] MEDS: LIDOCAINE 5% 1 PATCH TD STA (23:52)
[2024-05-17] MEDS: diphenhydrAMINE 50 MG/ML VIAL IV STA (23:52)
[2024-05-18] MEDS: SODIUM CHLORIDE 0.9% 1,000 ML IV SCH (00:02)
[2024-05-18 00:11] LABS: Albumin Globulin Ratio 1.6 (0.9-2); Albumin Level 4.4 gm/dl (3.4-5.0); BUN Creatinine Ratio 16.9 (10-20); Bilirubin,Total 0.3 mg/dl (0.2-1.0); Calcium 8.7 mg/dl (8.6-10.3); Creatinine Clr Calc Pharmacy 84.4 ml/min; Globulin 2.7 gm/dl (2.5-4.0); Magnesium 2.3 mg/dl (1.7-2.4); Potassium 3.9 mmol/L (3.5-5.1); Total Protein 7.1 gm/dl (6.0-8.3)
[2024-05-18] MEDS: OPTIRAY 320 100ml IV ONE (01:14)
--- NOTE | 2024-05-18 02:36 | CT Scan Report ---
EXAM: CT abd pelvis IV con only CLINICAL HISTORY: Pt reports she has stage 4 breast cancer to bones, reports it is into L hip and goes down into ankle, reports pain worsened today currently undergoing treatment 94 ml opti 320 PW TECHNIQUE: CT of the abdomen and pelvis was performed with contrast, with the following protocol: axial images with, and reconstructed coronal and sagittal images. One of the following dose reduction techniques was utilized for this exam: Automated exposure control, adjustment of the mA and/or kV according to patient size, and use of iterative reconstruction. COMPARISON: Comparison is made with previous imaging dated 04/17/2024. FINDINGS: Abdomen: Liver: Normal in size, shape, and density. No focal lesions, cysts, or masses were identified. Hepatic vasculature and biliary ducts are unremarkable. Gallbladder and Biliary System: The gallbladder is normal in size and shape. No wall thickening, pericholecystic fluid, or gallstones were identified. The common bile duct is normal in caliber without dilation. Pancreas: Pancreatic head, body, and tail are visualized and appear normal in size and density. No pancreatic masses or calcifications were noted. The pancreatic duct is not dilated. Spleen: Normal in size, shape, and density. No splenic lesions or masses were identified. Kidneys and Adrenal Glands: Both kidneys are normal in size, shape, and position. Cortical thickness is within normal limits. No renal calculi or hydronephrosis. Adrenal glands are unremarkable with no evidence of masses or hyperplasia. Pelvis: Urinary Bladder: Normal in contour and wall thickness. No intraluminal lesions identified. Uterus removed surgically. Ovaries:Not well visualized but no gross abnormalities noted Two dense objects noted in pelvic region, each measuring 1.6cm, likely surgical material. Bowel: The visualized bowel loops are normal in caliber and appearance. No evidence of bowel obstruction or wall thickening. Bones and Soft Tissues: Multiple osteosclerotic lesions involving L1 vertebral body, S1 sacral vertebra, and posterior sacral element, left iliac bone involving the ischium, iliac crest and posterior acetabular column, Small foci of osteosclerotic lesion at right femoral head and left greater trochanter, All lesions are mainly sclerotic with little lytic component, no soft tissue component. No fractures were identified. Lower chest cuts showing faint posterior dependent atlectatic changes. IMPRESSION: Multiple osteosclerotic lesions involving L1 vertebral body, S1 sacral vertebra, and posterior sacral element. Left iliac bone involving the ischium, iliac crest and posterior acetabular column. Small foci of osteosclerotic lesion at right femoral head and left greater trochanter. Two dense objects noted in pelvic region, each measuring 1.6cm, likely surgical material, from removed uterus possibly ovaries. Findings are stable, with no significant interval changes. Electronically signed by July Samuels 05-18-2024 02:36 AM
[2024-05-18] MEDS: KETOROLAC TROMETHAMINE 15 MG/ML VIAL IV ONE (03:09)
[2024-05-18] MEDS: HYDROmorphone INJ 0.5 MG/0.5 ML SYR IV STA (03:09)
[2024-05-18] MEDS: METHOCARBAMOL 500 MG TABLET PO STA (04:17)
--- NOTE | 2024-05-18 04:59 | History & Physical Report ---
Date of Service May 18, 2024 Assessment & Plan (1) Cancer, metastatic to bone: Plan: 44yo female with metastatic breast cancer, known bony lesion of left hip presenting with one day of severe, intractable hip pain. No trauma or falls. No fever, chills. No relief with home Oxycodone 10/325mg. -Admit to medical -Pain control with Tylenol 1gm po TID scheduled, Lidoderm patch -Oxycodone 10mg po q 4 hours as needed -Dilaudid 0.25 - 0.5mg IV q 3 hours as needed for ongoing pain -PRN Narcan ordered for unintentional overdose or respiratory suppression -Dulcolax KS and Milk of Magnesia PRN constipation -Zofran PRN nausea -Patient is agreeable with Palliative Care consultation to discuss symptom management -Continue Anastrazole *Has been on Lyrica in the past - 50mg po TID - could consider adding this if additional agents needed History of Present Illness Chief Complaint: left hip pain Primary Care Provider: NO PCP Debi Evans is a 44yo female with metastatic breast cancer, known bony lesion involving her left hip. Patient presents with one day of severe acute left hip pain. She has been taking her Oxycodone at home with minimal relief. Unable to walk due to ongoing pain. No falls or trauma. She denies fever, chills, chest pain, cough or shortness of breath. No abdominal pain. She has intermittent nausea and vomiting as well as constipation. Otherwise, no complaints. In the ER she is afebrile, HD stable. Uncomfortable due to pain in the left hip and leg. Relief with Dilaudid. ER Course: Reglan 5mg IV Dilaudid 0.25mg IV x 2 Benadryl 12.5mg IV Lidoderm patch Toradol 10mg IV Methocarbamol 500mg po NSS x 1L Allergies Allergy/AdvReac Type Severity Reaction Status Date / Time coconut Allergy Intermediate THROAT Verified 03/12/20 09:24 IRRITATION cephalexin Allergy Unknown RASH Verified 03/12/20 09:24 COD FISH Allergy Unknown PREORBITAL Uncoded 03/12/20 09:24 SWELLING Home Medications Medication Instructions Recorded Confirmed Type amoxicillin 875 mg-potassium 1 tab PO BID 10 days #20 tabs 03/12/20 03/12/20 Rx clavulanate 125 mg tablet (Augmentin) venlafaxine 225 mg tablet,extended 225 mg PO DAILY 03/12/20 03/12/20 History release 24 hr anastrozole 1 mg tablet 1 mg PO DAILY 05/18/24 05/18/24 History oxycodone-acetaminophen 10 mg-325 1 tab PO Q4H PRN Pain 05/18/24 05/18/24 History mg tablet Past Med/Surg History Problem List Cancer, metastatic to bone (Acute) Chronic left hip pain (Acute) Migraine headache (Chronic 06/08/11) Pseudoseizures (Chronic) Sciatica (Acute) Bipolar disorder (Chronic) Anxiety (Chronic) Seizure disorder (Chronic) Social History Smoking Status: Never smoker Preferred Language: Armenian Feels Safe at Home: Yes Review of Systems Review of Systems: All systems reviewed & are unremarkable except as noted in HPI & below Physical Exam Physical Exam: General: thin, frail appearing female, NAD Skin: warm, dry, intact, no rashes or lesions HEENT: NC/AT, PERRL, EOMI, anicteric sclera, conjunctiva without injection, external ear normal to inspection and nontender, nares patent, moist mucus membranes, dentition intact, no oropharyngeal lesions, neck supple, trachea midline, no LAD, no thyromegaly, no JVD Heart: +S1/S2, regular, no m/r/g Lungs: equal air entry bilaterally, no rales/rhonchi/wheezes Abd: +BS, soft, NT/ND, no masses/organomegaly/ascites Ext: warm, 2+ pulses in UE/LE bilaterally, no clubbing/cyanosis or edema, pain present in left hip and leg Neuro: nonfocal, patient AA&O x 4, speech intact, no facial droop, moving all extremities on command with equal strength 5/5 Results & Data Results & Data Vital Signs (Past 12 Hours) Vital Signs Temp Pulse Pulse Resp BP BP Pulse Ox 05/18/24 04:07 85 05/18/24 03:08 74 25 H 102/60 99 05/18/24 01:40 82 24 88/58 L 94 05/18/24 00:04 75 05/17/24 23:00 85 18 99/69 L 98 05/17/24 22:45 37.2 C 93 H 18 120/86 99 O2 Del Method 05/18/24 04:07 05/18/24 03:08 Room Air 05/18/24 01:40 Room Air 05/18/24 00:04 05/17/24 23:00 Room Air 05/17/24 22:45 Room Air Laboratory Results Laboratory Results WBC 7.17 K/ul (4.8-10.8) 05/17/24 23:28 RBC 3.85 M/uL (4.20-5.40) L 05/17/24 23:28 Hgb 11.9 g/dl (12.0-16.0) L 05/17/24 23: Hct 35.0 % (37.0-47.0) L 05/17/24 23: MCV 90.9 fL (80.0-100.0) 05/17/24 23: MCH 30.9 pg (25.0-34.0) 05/17/24 23:28 MCHC 34.0 g/dL (32.0-36.0) 05/17/24 23:28 RDW Std Deviation 42.8 fL (36.4-46.3) 05/17/24 23:28 RDW Coeff of Parth 13.1 % (11.5-14.5) 05/17/24 23: Plt Count 225 K/uL (130-400) 05/17/24 23:28 MPV 8.9 fL (9.4-12.4) L 05/17/24 23:28 Immature Gran % (Auto) 0.3 % 05/17/24 23: Neut % (Auto) 53.7 % 05/17/24 23: Lymph % (Auto) 27.8 % 05/17/24 23:28 [place] % (Auto) 12.8 % 05/17/24 23: Eos % (Auto) 3.9 % 05/17/24 23: Baso % (Auto) 1.5 % 05/17/24 23:28 Neut # (Auto) 3.85 K/uL (1.40-6.50) 05/17/24 23: Lymph # (Auto) 1.99 K/uL (1.20-3.40) 05/17/24 23:28 [place] # (Auto) 0.92 K/uL (0.11-0.59) H 05/17/24 23:28 Eos # (Auto) 0.28 K/uL (0.00-0.50) 05/17/24 23: Baso # (Auto) 0.11 K/uL (0.00-0.20) 05/17/24 23: Immature Gran # (Auto) 0.02 K/uL (0.01-0.20) 05/17/24 23:28 Sodium 140 mmol/L (136-145) 05/17/24 23: Potassium 3.9 mmol/L (3.5-5.1) 05/17/24 23: Chloride 106 mmol/L (98-107) 05/17/24 23: Carbon Dioxide 28 mmol/L (21-32) 05/17/24 23: Anion Gap 6 (3-11) 05/17/24 23: BUN 14 mg/dl (6-23) 05/17/24 23: Creatinine 0.83 mg/dl (0.6-1.2) 05/17/24 23:28 Est Cr Clr Drug Dosing 84.4 ml/min 05/17/24 23: eGFR 89.09 05/17/24 23: BUN/Creatinine Ratio 16.9 (10-20) 05/17/24 23: Glucose 101 mg/dl (70-99(Fasting)) H 05/17/24 23: Calcium 8.7 mg/dl (8.6-10.3) 05/17/24 23: Magnesium 2.3 mg/dl (1.7-2.4) 05/17/24 23: Total Bilirubin 0.3 mg/dl (0.2-1.0) 05/17/24 23: AST 15 U/L (13-39) 05/17/24 23: ALT 8 U/L (7-52) 05/17/24 23: Alkaline Phosphatase 93 U/L (34-104) 05/17/24 23: Total Protein 7.1 gm/dl (6.0-8.3) 05/17/24 23: Albumin 4.4 gm/dl (3.4-5.0) 05/17/24 23:28 Globulin 2.7 gm/dl (2.5-4.0) 05/17/24 23:28 Albumin/Globulin Ratio 1.6 (0.9-2) 05/17/24 23:28 Impressions Abdomen/Pelvis CT 05/17/24 23:27 EXAM: CT abd pelvis IV con only CLINICAL HISTORY: Pt reports she has stage 4 breast cancer to bones, reports it is into L hip and goes down into ankle, reports pain worsened today currently undergoing treatment 94 ml opti 320 PW TECHNIQUE: CT of the abdomen and pelvis was performed with contrast, with the following protocol: axial images with, and reconstructed coronal and sagittal images. One of the following dose reduction techniques was utilized for this exam: Automated exposure control, adjustment of the mA and/or kV according to patient size, and use of iterative reconstruction. COMPARISON: Comparison is made with previous imaging dated 04/17/2024. FINDINGS: Abdomen: Liver: Normal in size, shape, and density. No focal lesions, cysts, or masses were identified. Hepatic vasculature and biliary ducts are unremarkable. Gallbladder and Biliary System: The gallbladder is normal in size and shape. No wall thickening, pericholecystic fluid, or gallstones were identified. The common bile duct is normal in caliber without dilation. Pancreas: Pancreatic head, body, and tail are visualized and appear normal in size and density. No pancreatic masses or calcifications were noted. The pancreatic duct is not dilated. Spleen: Normal in size, shape, and density. No splenic lesions or masses were identified. Kidneys and Adrenal Glands: Both kidneys are normal in size, shape, and position. Cortical thickness is within normal limits. No renal calculi or hydronephrosis. Adrenal glands are unremarkable with no evidence of masses or hyperplasia. Pelvis: Urinary Bladder: Normal in contour and wall thickness. No intraluminal lesions identified. Uterus removed surgically. Ovaries:Not well visualized but no gross abnormalities noted Two dense objects noted in pelvic region, each measuring 1.6cm, likely surgical material. Bowel: The visualized bowel loops are normal in caliber and appearance. No evidence of bowel obstruction or wall thickening. Bones and Soft Tissues: Multiple osteosclerotic lesions involving L1 vertebral body, S1 sacral vertebra, and posterior sacral element, left iliac bone involving the ischium, iliac crest and posterior acetabular column, Small foci of osteosclerotic lesion at right femoral head and left greater trochanter, All lesions are mainly sclerotic with little lytic component, no soft tissue component. No fractures were identified. Lower chest cuts showing faint posterior dependent atlectatic changes. IMPRESSION: Multiple osteosclerotic lesions involving L1 vertebral body, S1 sacral vertebra, and posterior sacral element. Left iliac bone involving the ischium, iliac crest and posterior acetabular column. Small foci of osteosclerotic lesion at right femoral head and left greater trochanter. Two dense objects noted in pelvic region, each measuring 1.6cm, likely surgical material, from removed uterus possibly ovaries. Findings are stable, with no significant interval changes. Electronically signed by July Samuels 05-18-2024 02:36 AM Code Status & VTE Plan VTE Prophylaxis Plan VTE Prophylaxis will be ordered: Yes PG Care Time/CCT Total # of Minutes Spent Total Time Spent with Patient: Total time spent is greater than 50% in coordination of care (as documented) at patient's floor/unit and/or counseling patient: Coding Level of Care Code 03169 INT INP/OBS CARE 2/55MIN Diagnoses Cancer, metastatic to bone C79.51
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
[2024-05-18] MEDS ORDERED: HYDROmorphone INJ 0.5 MG/0.5 ML SYR IV PRN (07:38)
[2024-05-18] MEDS ORDERED: NALOXONE HCL 0.4 MG/1 ML VIAL/CARP IV PRN (07:38)
[2024-05-18] MEDS ORDERED: bisacodyL 10 MG SUPP PR PRN (07:38)
[2024-05-18] MEDS: ENOXAPARIN INJ 40 MG/0.4 ML SYR SQ SCH (08:15)
[2024-05-18] MEDS: ANASTROZOLE 1 MG TAB PO SCH (08:15)
[2024-05-18] MEDS: HYDROmorphone INJ 0.5 MG/0.5 ML SYR IV PRN ×2 (08:16→12:14)
[2024-05-18] MEDS: oxyCODONE HCL IR 5 MG TAB (IMMEDIATE RELEASE) PO PRN (08:21)
[2024-05-18] MEDS: ACETAMINOPHEN 500 MG TAB PO SCH (08:21)
--- NOTE | 2024-05-18 10:34 | XRay Report ---
XR tibia fibula LT 2V HISTORY: 44 years-old Female LLE pain acute pain in the left lower leg COMPARISON: 12/14/2014 TECHNIQUE: 2 views of the left tibia and fibula FINDINGS: No acute fracture, dislocation or significant joint space narrowing. Unremarkable soft tissues. IMPRESSION: No acute osseous abnormality. ACT 112: Negative or not required by law. The above report was generated using voice recognition software. It may contain grammatical, syntax o r spelling errors. Electronically signed by: Onofre Andrews M.D. 05/18/2024 10:33 AM
--- NOTE | 2024-05-18 11:18 | Ultrasound Report ---
LEFT LOWER EXTREMITY VENOUS DOPPLER HISTORY: Acute pain and swelling of the left lower leg LLE pain, rule out DVT COMPARISON STUDY: None. FINDINGS: There is normal compressibility, flow, and augmentation within the left lower extremity georgi p venous system. IMPRESSION: No DVT within the left lower extremity. ACT 112: Negative or not required by law. Electronically signed by: Onofre Andrews M.D. 05/18/2024 11:16 AM
[2024-05-18] MEDS: METHADONE HCL 5 MG TAB PO STA (12:13)
--- NOTE | 2024-05-18 12:50 | Electrocardiogram Report ---
Test Reason : Blood Pressure : */* mmHG Vent. Rate : 65 BPM Atrial Rate : 65 BPM P-R Int : 160 ms QRS Dur : 88 ms QT Int : 394 ms P-R-T Axes : 84 47 63 degrees QTcB Int : 409 ms Normal sinus rhythm with sinus arrhythmia Nonspecific T wave abnormality Abnormal ECG When compared with ECG of 28-May-2016 16:07, Nonspecific T wave abnormality now evident in Lateral leads Confirmed by Sivakumar Clark ([id number]) on 05/18/2024 12:49:46 PM Referred By: REFERRED SELF Confirmed By: Sivakumar Clark
[2024-05-18] MEDS: dexAMETHasone 4 MG in SYRINGE 0 ML IV SCH (13:10)
[2024-05-18] MEDS: LIDOCAINE 5% 1 PATCH TD STA (13:11)
--- NOTE | 2024-05-18 14:45 | Radiation OncologyConsultation ---
Date of Consultation May 18, 2024 Assessment & Plan (1) Pain from bone metastases: Assessment: 44-year-old female with a history of right breast cancer diagnosed in 2019. She was treated with neoadjuvant chemotherapy followed by bilateral mastectomy, breast reconstruction and systemic chemotherapy. Patient did well initially but was found to have evidence of metastatic bony disease. She was restarted on antiestrogen therapy and received palliative radiation in [facility] to the left ribs right femur and left pelvis. She had significant pain relief with palliative radiation. Her systemic therapy was ultimately stopped apparently due to noncompliance but she remained on Zometa and anastrozole. She now presents with significant progression of left pelvic and hip pain exacerbated by movement and weightbearing. CT scans have shown evidence of progressive bony metastatic disease involving L1, S1, posterior sacral element, left iliac bone involving the ischium, iliac crest and posterior acetabular column. There is a small focus of osteosclerotic lesion at the right femoral head and left greater trochanter. All lesions were mainly sclerotic with little lytic component and no soft tissue component. Treatment Options: 1. Continued palliative pain medication. 2. Initiation of systemic therapy. 3. Consideration of palliative radiation. Recommendations: 1. We will obtain the records of previous treatment delivered at [facility] at the [facility] by Dr. Hope. 2. Following review of treatment portals and doses received I would recommend consideration of retreatment as possible 2 areas of bony disease most likely causing her significant persistent left pelvic and hip pain. Plan: 1. We will obtain the records of her previous treatment from the [facility]. 2. We will schedule her for a CT simulation tomorrow. 3. We will review prior treatment volume and dose to determine retreatment potential. 4. We will review treatment with Dr. Vital and proceed with retreatment as possible for pain control. 5. Patient will continue with systemic pain medication as recommended by Dr. Lin. 6. Patient will continue on Zometa, anastrozole and be evaluated for systemic chemotherapy by Dr. Vital. History of Present Illness Reason for Consultation: left pelvis and hip pain Requesting Physician: Dr. Lin Attending Physician: Cody Foss History of Present Illness Ms. Evans is a 44-year-old female who was diagnosed on 07/05/2019 with an infiltrating ductal carcinoma of the right breast. Her presenting stage was T2 pN1a ER positive, OR positive and HER2/vanita negative by FISH. The patient was treated with neoadjuvant chemotherapy consisting of Adriamycin and Cytoxan x 4. She was treated from 06/12/2019 to 09/11/2019. She had a good response and underwent a bilateral mastectomy with a right sentinel lymph node dissection. Treatment was followed by weekly Taxol from 12/11/2019 to 02/11/2020 and adjuvant tamoxifen from to 12/10/2022. In October 2022 she developed evidence of metastatic recurrence with multiple bone metastasis. Biopsy confirmed the lesion to be ER positive, OR positive and HER2/vanita negative. She was started on Arimidex, Lupron and Verzenio. The Verzenio was started on 01/10/2023 and stopped in July 2023 due to noncompliance. Arimidex started on 12/22/2022 and has continued to date. The patient moved to [facility] at which time she was experiencing increasing left pelvic and hip pain. He was also complaining of pain in the left ribs and right hip. She was seen by Dr. Hope (radiation oncology) at the [facility] on [facility] in [place], [place]. They proceeded with a course of palliative radiation to the left ninth rib, left pelvis and right femur from /09/2022 through 12/08/2022. The patient stated that she was having a significant limp due to pain prior to the palliative radiation but after palliative treatment was able to walk without a limp and without any significant pain. The patient has continued on Zometa. More recently the patient has returned back to the area and has been complaining of severe left pelvic and hip pain that can be up to a level 10 with weightbearing and a level 6 at rest. She has been seen by Dr. Lin (palliative care) for progressive bony pain in the left lower extremity that has been escalating despite increasing pain medication. She has recently adjusted her medication to low-dose methadone on a as needed basis along with Decadron IV. 04/17/2024. CT of the abdomen and pelvis. EXAMINATION: Abdomen and pelvis CT with CLINICAL HISTORY: Breast cancer PRIORS: 06/19/2015 CT abdomen In bone windows, heterogeneous sclerosis is present involving approximately 50% of the L1 vertebral body. Heterogeneous sclerosis present within the sacrum and throughout the left iliac bone. Additional scattered sclerotic lesions present in the proximal femurs and left acetabulum. No pathologic fracture identified at this time. IMPRESSION: 1. No CT evidence of an acute abdominal or pelvic abnormality. 2. Osseous metastases within the lumbar spine, bony pelvis and femurs. We were asked to see the patient in referral for evaluation and discussion of the potential role for palliative radiation to the areas of painful bony m etastasis. EXAMINATION: Chest CT with CLINICAL HISTORY: Breast cancer In bone windows sclerotic lesions are present in the T2 vertebral body and posterior elements, T6 vertebral body, L1 vertebral body in the [id number], left humeral head and left posterior ninth rib with possible healed fracture, image 44, series 2. IMPRESSION: 1. Right upper lobe pulmonary nodule measuring 3 mm, indeterminate. Please follow-up as clinically appropriate. 2. Osseous metastases within the axial and appendicular skeleton. 05/17/2025. EXAMINATION: Chest CT with CLINICAL HISTORY: Breast cancer In bone windows sclerotic lesions are present in the T2 vertebral body and posterior elements, T6 vertebral body, L1 vertebral body in the [id number], left humeral head and left posterior ninth rib with possible healed fracture, image 44, series 2. IMPRESSION: 1. Right upper lobe pulmonary nodule measuring 3 mm, indeterminate. Please follow-up as clinically appropriate. 2. Osseous metastases within the axial and appendicular skeleton. Allergies Allergy/AdvReac Type Severity Reaction Status Date / Time coconut Allergy Intermediate THROAT Verified 03/12/20 09:24 IRRITATION cephalexin Allergy Unknown RASH Verified 03/12/20 09:24 Fish Containing Products Allergy Unknown "cod" Verified 05/18/24 11:44 preorbital swelling Home Medications Medication Instructions Recorded Confirmed Type anastrozole 1 mg tablet 1 mg PO DAILY 05/18/24 05/18/24 History oxycodone-acetaminophen 10 mg-325 1 tab PO Q4H PRN Pain 05/18/24 05/18/24 History mg tablet Patient History Social History Smoking Status: Never smoker Preferred Language: Romansh Feels Safe at Home: Yes Physical Exam Constitutional: The patient is sitting up in bed and appears to be in mild to moderate pain adequately developed. ENMT: external ear and nose normal, oropharynx normal Neck: trachea midline, no thyromegaly Respiratory: normal respiratory effort, lungs clear to auscultation Cardiovascular: RRR, no murmur, no edema Gastrointestinal (Abdomen): normal bowel sounds, soft, nontender, no hepatosplenomegaly Musculoskeletal: The patient has tenderness and pain to palpation over the left pelvic bony sites and left hip and left femur movement. Skin: no rashes, warm and dry Neurologic: PERRL, EOMI, accommodation nl, no face palsy, no dysarthria Psychiatric: A+Ox3, euthymic affect Results (Rad Onc) Laboratory Results: were reviewed and pertinent findings noted in HPI Pathology Results: were reviewed and pertinent findings noted in HPI Imaging Studies: were reviewed and pertinent findings noted in HPI Time Spent Attending This documentation has been prepared in full by Dr. Fraser. I have personally reviewed the services described and have reviewed the documentation to ensure its accuracy. I spent 20 minutes with direct face to face interaction with the patient which included obtaining clinical information, recommending a plan of action and answering questions. I spent 30 minutes reviewing her scan with radiology. Discussion with medical oncology, obtaining prior radiation records, review of chart and completion of this document. PATRICIA
--- NOTE | 2024-05-18 15:43 | Communication Note ---
Date of Service: May 18, 2024 (1) Cancer, metastatic to bone: 44yo female with metastatic breast cancer, known bony lesion of left hip presenting with one day of severe, intractable hip pain. No trauma or falls. No fever, chills. No relief with home Oxycodone 10/325mg. -Pain control with Tylenol 1gm po TID scheduled, Lidoderm patch -Oxycodone 10mg po q 4 hours as needed -Dilaudid 0.25 - 0.5mg IV q 3 hours as needed for ongoing pain -PRN Narcan ordered for unintentional overdose or respiratory suppression -Dulcolax PA and Milk of Magnesia PRN constipation -Zofran PRN nausea -Patient is agreeable with Palliative Care consultation to discuss symptom management patient started on methadone and dexamethasone 05/18 -radiation oncology consultation - patient to have CT simulation 05/19. -Continue Anastrazole *Has been on Lyrica in the past - 50mg po TID - could consider adding this if additional agents needed
[2024-05-18] MEDS: diphenhydrAMINE Capsule 25 MG CAP PO PRN (15:50)
[2024-05-18] MEDS: METHADONE HCL 5 MG TAB PO PRN (18:46)
[2024-05-19] MEDS: diphenhydrAMINE Capsule 25 MG CAP PO PRN (00:27)
--- NOTE | 2024-05-19 01:01 | Communication Note ---
Date of Service: May 19, 2024 Notified by nursing that patient reported that she cannot lift her left leg which was new. Patient reported that she didn't feel this was related to pain, also reports that her leg feels heavy. I went to bedside, patient appeared anxious and tearful. On physical exam, patient had intact sensation throughout her left lower extremity and was able to wiggle her toes. Patient states that her left hip area feels like it is throbbing. I reviewed her recent venous duplex of left LE (completed 05/18), discussed case with attending physician. Venous duplex did not show evidence of DVT yesterday, could consider CT venogram today if symptoms not improved or higher suspicion for clot. Per chart review, plan is for CT simulation on 05/19. Discussed concerns with patient who is very tearful and states "I'm terrified"- ordered dose of PO ativan. Resident Activity Tracking Resident Involvement: Resident Care Provided Care Provided: Adult Hospital Medicine
[2024-05-19] MEDS: LORazepam 0.5 MG TAB PO ONE (01:32)
[2024-05-19] MEDS: LIDOCAINE 5% 1 PATCH TD SCH (07:48)
--- NOTE | 2024-05-19 10:52 | Palliative Care Progress Note ---
Date of Service May 19, 2024 Assessment & Plan (1) Palliative care by specialist: (2) Pain from bone metastases: (3) Cancer related pain: Plan Debi Evans is a 44yo female with met breast cancer who has newly established care with Dr. Vital at [facility]. She came to [facility] ER with severe worsening pain and decreased strength/mobility of LLE. She states she has been using Oxy IR 10mg tabs at home, every 4 hrs, without relief. Cancer related pain: No relief with escalating opioids including Oxy IR and Dilaudid IV. 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 *Discontinued oxycodone as pt reports no relief even with frequent dosing. *Continue Methadone 2.5mg PO q4h and use Dilaudid 0.25mg IV q4h prn for severe break through pain refractory to methadone. *restart lyrica on prior dosing, pt declines gabapentin for neuropathic leg/finger pain but states that lyrica previously worked well for her. * Palliative Care will revaluate on Wednesday for potential dose adjust ment/transition to scheduled methadone. *Palliative Care will continue to follow this pt in outpt clinic for ongoing pain management and dose adjustments. Reinforced with patient that METHADONE SHOULD NOT BE TITRATED DAILY: Methadone is lipophilic, thus it takes time to develop tissue stores that maintain serum levels. Dosing must account for the accumulation of drug over days for both safety and efficacy. After steady-state is reached, about two-thirds of patients will get adequate pain relief with twice a day dosing.A number of drugs will alter methadone metabolism, so there needs to be close follow-up to drug interactions. Admission and Anticipated Discharge Date Admission Date: May 18, 2024 Subjective Assessed pt at bedside, her sister and son were present. Pt was AAOx4 and pleasantly communicative. She reports that she has had mapping/simulation for radiation and plan is to begin radiation treatments on Wednesday. She c/o decreased mobility, increased pain and edema to left upper thigh, doppler US for DVT pending. Review of Systems Review of Systems: All systems reviewed & are unremarkable except as noted in Subjective Physical Exam Physical Exam: AAOx4 in NAD on room air sharp throbbing pain in left hip to pelvis and groin with radiation into left lower leg through knee and numb/stinging pain below knee; edema noted to left thigh, focal tenderness lower lumbar left > lungs CTA pharynx pink MMM; +lip piercings dentition poor/edentulous/wears dentures abd soft, tender lower quadrant into suprapubic with radiation to left groin with deeper palpation left lower LLE strength diminished, cannot bear weight, difficulty lifting leg off bed skin pale, warm, dry normal affect, normal thought content Results & Data Vital Signs (Past 12 Hours) Vital Signs Temp Pulse Resp BP Pulse Ox O2 Del Method 05/19/24 07:10 36.7 C 71 16 91/53 L 97 Room Air Diagnostic Findings Abdomen/Pelvis CT 05/17/24 23:27 EXAM: CT abd pelvis IV con only CLINICAL HISTORY: Pt reports she has stage 4 breast cancer to bones, reports it is into L hip and goes down into ankle, reports pain worsened today currently undergoing treatment 94 ml opti 320 PW TECHNIQUE: CT of the abdomen and pelvis was performed with contrast, with the following protocol: axial images with, and reconstructed coronal and sagittal images. One of the following dose reduction techniques was utilized for this exam: Automated exposure control, adjustment of the mA and/or kV according to patient size, and use of iterative reconstruction. COMPARISON: Comparison is made with previous imaging dated 04/17/2024. FINDINGS: Abdomen: Liver: Normal in size, shape, and density. No focal lesions, cysts, or masses were identified. Hepatic vasculature and biliary ducts are unremarkable. Gallbladder and Biliary System: The gallbladder is normal in size and shape. No wall thickening, pericholecystic fluid, or gallstones were identified. The common bile duct is normal in caliber without dilation. Pancreas: Pancreatic head, body, and tail are visualized and appear normal in size and density. No pancreatic masses or calcifications were noted. The pancreatic duct is not dilated. Spleen: Normal in size, shape, and density. No splenic lesions or masses were identified. Kidneys and Adrenal Glands: Both kidneys are normal in size, shape, and position. Cortical thickness is within normal limits. No renal calculi or hydronephrosis. Adrenal glands are unremarkable with no evidence of masses or hyperplasia. Pelvis: Urinary Bladder: Normal in contour and wall thickness. No intraluminal lesions identified. Uterus removed surgically. Ovaries:Not well visualized but no gross abnormalities noted Two dense objects noted in pelvic region, each measuring 1.6cm, likely surgical material. Bowel: The visualized bowel loops are normal in caliber and appearance. No evidence of bowel obstruction or wall thickening. Bones and Soft Tissues: Multiple osteosclerotic lesions involving L1 vertebral body, S1 sacral vertebra, and posterior sacral element, left iliac bone involving the ischium, iliac crest and posterior acetabular column, Small foci of osteosclerotic lesion at right femoral head and left greater trochanter, All lesions are mainly sclerotic with little lytic component, no soft tissue component. No fractures were identified. Lower chest cuts showing faint posterior dependent atlectatic changes. IMPRESSION: Multiple osteosclerotic lesions involving L1 vertebral body, S1 sacral vertebra, and posterior sacral element. Left iliac bone involving the ischium, iliac crest and posterior acetabular column. Small foci of osteosclerotic lesion at right femoral head and left greater trochanter. Two dense objects noted in pelvic region, each measuring 1.6cm, likely surgical material, from removed uterus possibly ovaries. Findings are stable, with no significant interval changes. Electronically signed by July Samuels 05-18-2024 02:36 AM Tibia/Fibula X-Ray 05/18/24 09:49 XR tibia fibula LT 2V HISTORY: 44 years-old Female LLE pain acute pain in the left lower leg COMPARISON: 12/14/2014 TECHNIQUE: 2 views of the left tibia and fibula FINDINGS: No acute fracture, dislocation or significant joint space narrowing. Unremarkable soft tissues. IMPRESSION: No acute osseous abnormality. ACT 112: Negative or not required by law. The above report was generated using voice recognition software. It may contain grammatical, syntax or spelling errors. Electronically signed by: Onofre Andrews M.D. 05/18/2024 10:33 AM Venous Doppler Study 05/18/24 09:49 LEFT LOWER EXTREMITY VENOUS DOPPLER HISTORY: Acute pain and swelling of the left lower leg LLE pain, rule out DVT COMPARISON STUDY: None. FINDINGS: There is normal compressibility, flow, and augmentation within the left lower extremity deep venous system. IMPRESSION: No DVT within the left lower extremity. ACT 112: Negative or not required by law. Electronically signed by: Onofre Andrews M.D. 05/18/2024 11:16 AM Medications Administered Current Inpatient Medications Acetaminophen (Acetaminophen 500 Mg Tab) 1,000 mg PO TID ABBI Stop: 06/17/24 08:59 Last Admin: 12/27/24 07:52 Dose: 1,000 mg Anastrozole (Anastrozole 1 Mg Tab) 1 mg PO DAILY [facility] Stop: 06/17/24 08:59 Last Admin: 05/19/24 07:48 Dose: 1 mg Bisacodyl (Bisacodyl 10 Mg Supp) 10 mg TN HS PRN PRN Reason: Constipation Stop: 06/17/24 07:37 Diphenhydramine HCl (Diphenhydramine Capsule 25 Mg Cap) 25 mg PO Q6H PRN PRN Reason: Itching Stop: 06/17/24 15:43 Last Admin: 05/19/24 00:27 Dose: 25 mg Enoxaparin Sodium (Enoxaparin Inj 40 Mg/0.4 Ml Syr) 40 mg SQ Q24H [facility] Stop: 06/17/24 07:37 Last Admin: 05/19/24 07:48 Dose: 40 mg Hydromorphone HCl (Hydromorphone Inj 0.5 Mg/0.5 Ml Syr) 0.25 mg IV Q4H PRN PRN Reason: very severe pain refractory to Stop: 06/01/24 11:31 Dexamethasone 4 mg/ Syringe 1 mls @ 1 mls/min IV Q24H [facility] Stop: 05/23/24 11:59 Last Admin: 05/18/24 13:10 Dose: 1 mls/min Lidocaine (Lidocaine 5% 1 Patch) 1 patch TD DAILY [facility] Stop: 06/18/24 08:59 Last Admin: 05/19/24 07:48 Dose: 1 patch Magnesium Hydroxide (Magnesium Hydroxide Susp 30 Ml Udc) 30 ml PO Q6H PRN PRN Reason: Constipation Stop: 06/17/24 07:37 Methadone HCl (Methadone Hcl 5 Mg Tab) 2.5 mg PO Q4H PRN PRN Reason: cancer pain Stop: 06/01/24 11:42 Last Admin: 05/18/24 18:46 Dose: 2.5 mg Miscellaneous (Remove Lidoderm Patch) 1 each N/A DAILY@2100 [facility] Stop: 06/18/24 20:59 Last Admin: 05/18/24 20:32 Dose: 1 each Naloxone HCl (Naloxone Hcl 0.4 Mg/1 Ml Vial/Carp) 0.4 mg IV PRN PRN PRN Reason: overdose Stop: 06/17/24 07:37 Ondansetron HCl (Ondansetron Inj 2 Mg/Ml 2 Ml Vial) 4 mg IV Q6H PRN PRN Reason: Nausea And Vomiting Stop: 06/17/24 07:37 PG Care Time/CCT Total # of Minutes Spent Total Time Spent with Patient: Total time spent is greater than 50% in coordination of care (as documented) at patient's floor/unit and/or counseling patient: Coding [place] [address] SUB INP/OBS CARE 2/35MIN Patient Type Established Medical Decision Making Moderate Complexity Diagnoses Palliative care by specialist Z51.5 Pain from bone metastases G89.3; C79.51 Cancer related pain G89.3
[2024-05-19] MEDS: HYDROmorphone INJ 0.5 MG/0.5 ML SYR IV PRN (12:59)
--- NOTE | 2024-05-19 13:59 | Ultrasound Report ---
LEFT LOWER EXTREMITY VENOUS DOPPLER HISTORY: Acute pain and swelling of the left lower leg swelling proximal upper 3rd of thigh COMPARISON STUDY: 05/18/2024 FINDINGS: There is normal compressibility, flow, and augmentation within the left lower extremity georgi p venous system. Normal appearing left inguinal chain lymph nodes which are nonenlarged. IMPRESSION: Unchanged exam from the study obtained 24 hours earlier. No DVT identified. ACT 112: Negative or not required by law. Electronically signed by: Onofre Andrews M.D. 05/19/2024 1:58 PM
[2024-05-19] MEDS: PREGABALIN 50 MG CAP PO SCH (14:03)
--- NOTE | 2024-05-19 16:02 | Hospitalist Progress Note ---
Date of Service May 19, 2024 Assessment & Plan (1) Cancer, metastatic to bone: Plan: 44yo female with metastatic breast cancer, known bony lesion of left hip presenting with one day of severe, intractable hip pain. No trauma or falls. No fever, chills. No relief with home Oxycodone 10/325mg. Palliative care consulted and discussed with provider 05/19 Methadone 2.5mg q4h prn Diluadid 0.25mg IV q4h for breakthrough pain Dexamethasone added 05/18. Lyrica 50mg TID added 05/19 Narcan prn for unintentional OD or respiratory suppression. Palliative care to aide in calculation of outpatient methadone dose on 05/22 after seeing how much patient requires over weekend. Radiation oncology consulted Patient had CT simulation 05/19 Per patient is planned to have 10 radiation treatments starting 05/22. -Dulcolax SD and Milk of Magnesia PRN constipation -Zofran PRN nausea -Continue Anastrazole Doppler US of LLE and left thigh completed 05/18 and 05/19 negative for DVT Given concerning edema of left thigh region, CT venogram ordered. PT/OT consults when patient's pain is under control. Plan DVT prophylaxis: Lovenox Disposition: medical Code status: full Admission and Anticipated Discharge Date Admission Date: May 18, 2024 Subjective Patient seen and examined this morning with her family at bedside. Palliative care provider also present. Patient still complaining of severe pain in her left upper thigh/hip area with radiation to her LLE. Patient reports edema in this area. She reports she is no longer able to bear weight and has to drag her foot to ambulate. Palliative care discussed w/ patient the use of methadone today and she was willing to try this for pain relief. Also reports that she was on Lyrica in the past but hasn't taken this for 6 months. Patient refuses to try gabapentin but was agreeable to be started back on Lyrica. Physical Exam Constitutional: WD/WN, vitals as above Respiratory: breathing unlabored Cardiovascular: well perfused Musculoskeletal: edema in left thigh region Results & Data Results & Data Vital Signs (Past 12 Hours) Vital Signs Temp Pulse Resp BP Pulse Ox O2 Del Method 05/19/24 07:10 36.7 C 71 16 91/53 L 97 Room Air PG Care Time/CCT Total # of Minutes Spent Total Time Spent with Patient: Total time spent is greater than 50% in coordination of care (as documented) at patient's floor/unit and/or counseling patient: Coding Level of Care Code 82054 SUB INP/OBS CARE MIN Diagnoses Cancer, metastatic to bone C79.51
[2024-05-20] MEDS: MAGNESIUM HYDROXIDE SUSP 30 ML UDC PO PRN (09:22)
[2024-05-20] MEDS: OPTIRAY 320 125ml IV ONE (11:40)
--- NOTE | 2024-05-20 12:31 | CT Scan Report ---
CT venogram LE LT wo/w con CLINICAL HISTORY: proximal leg swelling TECHNIQUE: Multidetector row helical CT of the left lower extremity down through the feet was perform ed, following intravenous administration of iodinated contrast. No oral contrast was administered. Au tomated dose lowering techniques and/or adjustment according to patient size were utilized for this e xam. Coronal and sagittal reformations were obtained. MIP and 3D volume rendered reconstructions were obtained. CT DOSE: 2101.35 mGy.cm Comparison: Comparison is made to CT abdomen pelvis 05/18/2024 FINDINGS: Pelvis: The bladder is unremarkable. A few surgical clips are noted in the peritoneum. Marcelle ent is status post hysterectomy. The bowel is unremarkable. CT venogram: The iliac arteries and their branches are unremarkable. No thrombus is seen in the venous system. IMPRESSION: No venous thrombus is seen. No other abnormalities. ACT 112: Negative or not required by law. Electronically signed by: Matias Marsh M.D. 05/20/2024 12:29 PM
[2024-05-20] MEDS: POLYETHYLENE (MIRALAX) 17 GM PACK PO SCH (12:35)
--- NOTE | 2024-05-20 14:19 | Hospitalist Progress Note ---
Date of Service May 20, 2024 Assessment & Plan (1) Cancer, metastatic to bone: Plan: 44yo female with metastatic breast cancer, known bony lesion of left hip presenting with one day of severe, intractable hip pain. No trauma or falls. No fever, chills. No relief with home Oxycodone 10/325mg. Palliative care consulted and discussed with provider 05/19 Methadone 2.5mg q4h prn Dilaudid 0.25mg IV q4h for breakthrough pain Dexamethasone added 05/18, through 05/23 Lyrica 50mg TID added 05/19, patient previously on this for neuropathic pain but has been off of it for 6 months Narcan prn for unintentional OD or respiratory suppression. Palliative care to aide in calculation of outpatient methadone dose on 05/22 after seeing how much patient requires over weekend. Radiation oncology consulted Patient had CT simulation 05/19 Per patient is planned to have 10 radiation treatments starting 05/22. -Dulcolax MA and Milk of Magnesia PRN constipation -Zofran PRN nausea -Continue Anastrazole Doppler US of LLE and left thigh completed 05/18 and 05/[address] venogram negative for DVT on 05/20 PT/OT consult Plan DVT prophylaxis: Lovenox Disposition: medical Code status: full Admission and Anticipated Discharge Date Admission Date: May 18, 2024 Subjective Patient seen and examined this morning. Patient reports pain in her left hip area has improved. She still is complaining of edema in that region. Reports she is able to walk on it again. denies any additional complaints. Physical Exam Constitutional: WD/WN, vitals as above Eyes: PERRL, conjunctivae normal, anicteric sclerae Respiratory: breathing unlabored Cardiovascular: well perfused Musculoskeletal: edema of left proximal thigh/hip region. warm to touch. no erythema observed. Psychiatric: A+Ox3, euthymic affect Results & Data Results & Data Vital Signs (Past 12 Hours) Vital Signs Temp Pulse Resp BP Pulse Ox O2 Del Method 05/20/24 07:27 36.6 C 61 16 122/80 96 Room Air PG Care Time/CCT Total # of Minutes Spent Total Time Spent with Patient: Total time spent is greater than 50% in coordination of care (as documented) at patient's floor/unit and/or counseling patient: Coding Level of Care Code 55706 SUB INP/OBS CARE 235MIN Diagnoses Cancer, metastatic to bone C79.51
--- NOTE | 2024-05-21 13:53 | Hospitalist Progress Note ---
Date of Service May 21, 2024 Assessment & Plan (1) Cancer, metastatic to bone: Plan: 44yo female with metastatic breast cancer, known bony lesion of left hip presenting with one day of severe, intractable hip pain. No trauma or falls. No fever, chills. No relief with home Oxycodone 10/325mg. Palliative care consulted and discussed with provider 05/19 Methadone 2.5mg q4h prn Dilaudid 0.25mg IV q4h for breakthrough pain Dexamethasone added 05/18, through 05/23 Lyrica 50mg TID added 05/19, patient previously on this for neuropathic pain but has been off of it for 6 months Narcan prn for unintentional OD or respiratory suppression. Palliative care to aide in calculation of outpatient methadone dose on 05/22 after seeing how much patient requires over weekend. Radiation oncology consulted - Patient had CT simulation 05/19 Per patient is planned to have 10 radiation treatments starting 05/22. Miralax daily for constipation w/ Dulcolax and milk of magnesia prn -Zofran PRN nausea -Continue Anastrazole Doppler US of LLE and left thigh completed 05/18 and 05/[address] venogram negative for DVT on 05/20 PT/OT consult Plan DVT prophylaxis: Lovenox Disposition: medical Code status: full Admission and Anticipated Discharge Date Admission Date: May 18, 2024 Subjective Patient seen and examined this morning. Patient reports to be feeling better today. She was walking w/o a walker at time of my encounter. Reports the methadone is effective. She feels she is ready to return home following her radiation tomorrow. Physical Exam Constitutional: WD/WN, vitals as above Eyes: PERRL, conjunctivae normal, anicteric sclerae Respiratory: breathing unlabored Cardiovascular: well perfused Psychiatric: A+Ox3, euthymic affect Results & Data Results & Data Vital Signs (Past 12 Hours) Vital Signs Temp Pulse Resp BP Pulse Ox O2 Del Method 05/21/24 08:10 36.6 C 84 14 110/74 97 Room Air PG Care Time/CCT Total # of Minutes Spent Total Time Spent with Patient: Total time spent is greater than 50% in coordination of care (as documented) at patient's floor/unit and/or counseling patient: Coding Level of Care Code 11383 SUB INP/OBS CARE 2/35MIN Diagnoses Cancer, metastatic to bone C79.51
[2024-05-21 16:09] VITALS: RESP 16
[2024-05-22 08:05] VITALS: BP 147/91; PULSE 93; TEMP 98.4; O2SAT 98
--- NOTE | 2024-05-22 08:07 | Hospitalist Progress Note ---
Date of Service May 22, 2024 Assessment & Plan (1) Cancer, metastatic to bone: Plan: 44yo female with metastatic breast cancer, known bony lesion of left hip presenting with one day of severe, intractable hip pain. No trauma or falls. No fever, chills. No relief with home Oxycodone 10/325mg. CT shows sclerotic lesions L1,S1 and left ilium and ischium, left acetabulum. Palliative care consulted and discussed with provider 05/19 Methadone 2.5mg q4h prn Dilaudid 0.25mg IV q4h for breakthrough pain Dexamethasone added 05/18, through 05/23 Lyrica 50mg TID added 05/19, patient previously on this for neuropathic pain but has been off of it for 6 months Narcan prn for unintentional OD or respiratory suppression. Palliative care to aide in calculation of outpatient methadone dose on 05/22 after seeing how much patient requires over weekend. Radiation oncology consulted - Patient had CT simulation 05/19 Per patient is planned to have 10 radiation treatments starting 05/22. Miralax daily for constipation w/ Dulcolax and milk of magnesia prn -Zofran PRN nausea -Continue Anastrazole Doppler US of LLE and left thigh completed 05/18 and 05/[address] venogram negative for DVT on 05/20 PT/OT consult Plan DVT prophylaxis: Lovenox Disposition: medical Code status: full Admission and Anticipated Discharge Date Admission Date: May 18, 2024 Results & Data Results & Data Vital Signs (Past 12 Hours) Vital Signs Temp Pulse Resp BP Pulse Ox O2 Del Method 05/21/24 20:25 97.9 F 81 16 116/81 95 Room Air PG Care Time/CCT Total # of Minutes Spent Total Time Spent with Patient: Total time spent is greater than 50% in coordination of care (as documented) at patient's floor/unit and/or counseling patient: Coding Diagnoses Cancer, metastatic to bone C79.51
--- NOTE | 2024-05-22 11:08 | Discharge Summary ---
Discharge Summary Date of Service May 22, 2024 Principal Dx & Hospital Course #1 = Principal Diagnosis (1) Cancer, metastatic to bone: 44yo female with metastatic breast cancer, known bony lesion of left hip presenting with one day of severe, intractable hip pain. No trauma or falls. No fever, chills. No relief with home Oxycodone 10/325mg. CT shows sclerotic lesions L1,S1 and left ilium and ischium, left acetabulum. Doppler US of LLE and left thigh completed 05/18 and 05/[address] venogram negative for DVT on 05/20 Palliative care consulted and following. Patient will be discharged on: Methadone 2.5mg q4hour prn Outpatient oxycodone dose every 4 hours prn for breakthrough pain. Lyrica 50mg TID for neuropathic pain. - patient seems to have responded well to this medication. She is to follow up with palliative care outpatient next week. Patient to complete her radiation treatments for palliative care starting 05/22. First one completed in the hospital prior to discharge. Recommend Miralax daily for constipation. -Continue Anastrazole Plan Discussed w/ palliative care providers on discharge 05/22 Admission HPI Per Admitting Provider Debi Evans is a 44yo female with metastatic breast cancer, known bony lesion involving her left hip. Patient presents with one day of severe acute left hip pain. She has been taking her Oxycodone at home with minimal relief. Unable to walk due to ongoing pain. No falls or trauma. She denies fever, chills, chest pain, cough or shortness of breath. No abdominal pain. She has intermittent nausea and vomiting as well as constipation. Otherwise, no complaints. In the ER she is afebrile, HD stable. Uncomfortable due to pain in the left hip and leg. Relief with Dilaudid. ER Course: Reglan 5mg IV Dilaudid 0.25mg IV x 2 Benadryl 12.5mg IV Lidoderm patch Toradol 10mg IV Methocarbamol 500mg po NSS x 1L Discharge Exam Constitutional WD/WN, vitals as above Eyes PERRL, conjunctivae normal, anicteric sclerae Respiratory breathing unlabored Cardiovascular well perfused Psychiatric A+Ox3, euthymic affect Discharge Plan Discharge Items Patient Disposition: Home - Self-Care Reason For Visit: LEFT HIP PAIN, METASTATIC CANCER Discharge Diagnosis: Metastatic breast cancer Activity: Resume your previous activity Non-emergency contact: Primary Care Provider, Oncologist and Pain Management Call non-emergency contact if: you have any medication questions and your symptoms worsen Follow-up/Referrals: Pia Rader MD [Primary Care Provider] - Debi Campbell, VITALY [Nurse Practitioner] - 06/01/24 9:00 am Diet: Regular Addtl Attending Provider Instructions: Ms. Evans, You were recently hospitalized for left hip pain. You had an extensive work up and this was found to be secondary to your metastatic cancer. You were evaluated by palliative care and were started on methadone to aide with your pain control. Please see recommendations below regarding your discharge. 1. Please use Methadone every 4 hours as needed for pain. 2. Please use oxycodone every 4 hours for breakthrough pain. 3. You were re-started on Lyrica three times daily for nerve pain, please continue this outpatient. 4. Please follow up with radiation oncology for your scheulded treatments. 5. Please follow up with your oncologist. 6. Please follow up with palliative care outpatient for continued pain control. If you develop any worsening pain, fevers, chills, chest pain, or shortness of breath please report back to the ER for further care. Sincerely, Izzy Tilley PA-C Pending Studies at Discharge: No Stand-Alone Forms: My [facility] discoapi, Smoking Cessation Medications and DC Order Prescriptions: New pregabalin 50 mg capsule 50 mg PO TID Qty: 30 0RF Continued anastrozole 1 mg tablet 1 mg PO DAILY oxycodone-acetaminophen 10-325 mg tablet 1 tab PO Q4H PRN (Reason: Pain) Discharge Orders: Discharge Order (Routine); Ordered 05/22/24 Ordered By: Izzy Tilley Admission Data Admit Date/Time: 05/18/24 04:46 Attending Provider: Robin Carvalho Admit Provider: Sophia Hunt Primary Care Provider: Pai Rader Other Providers: Joan Daniel; Debi Campbell; Sophia Hunt; Marlene Pinedo; Adam Fuentes; Dexter Fraser; Oscar Cuba Hospital Stay Data Consultations 05/18/24 04:04 ED Decision to Admit Stat 12/26/24 04:46 Consult Palliative Care Routine 05/18/24 11:42 Consult Radiation Oncology Stat Diagnostic Imagining Performed 05/17/24 23:27 CT abd pelvis IV con only Stat 05/18/24 09:49 US venous duplex leg [US venous doppler LE LT] Urgent 05/19/24 09:00 CT guide rad therapy pelvis Routine 05/19/24 11:16 US venous doppler LE LT Urgent 05/19/24 15:54 CT venogram LE LT wo/w con Urgent Pending Results Patient Have Any Pending Studies at Discharge: No Discharge Instructions Given to Patient (Per Discharging Provider) Ms. Evans, You were recently hospitalized for left hip pain. You had an extensive work up and this was found to be secondary to your metastatic cancer. You were evaluated by palliative care and were started on methadone to aide with your pain control. Please see recommendations below regarding your discharge. 1. Please use Methadone every 4 hours as needed for pain. 2. Please use oxycodone every 4 hours for breakthrough pain. 3. You were re-started on Lyrica three times daily for nerve pain, please continue this outpatient. 4. Please follow up with radiation oncology for your scheulded treatments. 5. Please follow up with your oncologist. 6. Please follow up with palliative care outpatient for continued pain control. If you develop any worsening pain, fevers, chills, chest pain, or shortness of breath please report back to the ER for further care. Sincerely, Izzy Tilley PA-C Total Time Total Time Spent Total Time Spent (In Minutes): 45 Total Time Includes: Examination of the Patient, Discharge Planning, Medication Reconciliation and Communication With Other Providers Coding Level of Care Code 70018 INP/OBS DISCH >30 MIN Diagnoses Cancer, metastatic to bone C79.51
[2024-05-22] MEDS: ONDANSETRON INJ 2 MG/ML 2 ML VIAL IV PRN (12:52)
--- NOTE | 2024-05-22 13:21 | Palliative Care Progress Note ---
Date of Service May 22, 2024 Assessment & Plan (1) Counseling regarding goals of care: Plan: Met with pt at bedside from 10:00 - 10:40 today to discuss goals of care/advanced planning. Summary of discussion: Patient shared today that she has been struggling recently with trying to align her own goals and values with the wishes of her family. She shared that her sister and her daughter are making her continue cancer directed treatments to "set an example for the kids how to keep on fighting and never give up". She shared that if it were up to her she would not have continued with radiation this time. She shared fears that she is "sure that at some point I will need chemo, but don't want to go through that again. Discussed with her that she is the one experiencing her illness, pain and treatments and only she can identify when the burden of symptoms outweigh any possible benefits of treatments. She shared that the oncology team has let her know that her cancer is not curable but she has gotten no prognostication in form of life expectancy. she shared that the treatments are purely palliative, but she is unsure that her family has accepted it. She stated that she would mostly like to return home and not have to deal with treatments anymore. She shared that her son committed suicide a few years ago and her fiance 2yrs ago and she is ready to go join both of them. She then shared that she has an appointment with a Psychiatric clinic in [place] next week and hopes they will give her meds to help her deal with her grief so she can enjoy time with her remaining children at home. Empathy and compassion offered. encouraged pt to keep all of her healthcare teams aware of ALL medications she is taking due to possible interactions. Pt also requested information on getting a medical marijuana card for [place], I referred her to her PCP for this. Pt had some questions about hospice and asked how she would know when it was time. I again encouraged her that if her disease progresses to point that burden of symptoms outweighs benefits of treatments, and she is no longer pursuing life prolonging therapy, Hospice or comfort directed care would be appropriate. Helped pt understand that hospice philosophy is to maximize comfort and quality of life while allowing for a peaceful and dignified natural . She expressed concern that her family would not accept her choice for hospice care. Offered to call her sister and daughter to discuss with them, she politely declined stating that she would want to talk with them a bit more first and she is not ready to stop cancer directed treatments. Encouraged her to discuss this during her outpt follow up when she is ready. (2) Palliative care by specialist: (3) Pain from bone metastases: (4) Cancer related pain: Sarah Evans is a 44yo female with met breast cancer who has newly established care with Dr. iVtal at [facility]. She came to [facility] ER with severe worsening pain and decreased strength/mobility of LLE. She states she has been using Oxy IR 10mg tabs at home, every 4 hrs, without relief. Cancer related pain: No relief with escalating opioids including Oxy IR and Dilaudid IV. Ongoing pain is nociceptive, neuropathic and visceral and will likely require mcc treatment with opiates. Pt shared that she prefers not to continue with dilaudid for pain as it makes her "high and confused". She shares that the methadone is working well for her pain without need for any additional PRNs. She is agreeable to restarting oxycodone as outpt for breakthrough pain, but shared that she hopes it will not be needed. recs for discharge: *Continue Methadone 2.5mg PO q4h prn for severe pain *Restart oxycodone 10mg PO q6h PRN for pain refractory to methadone. *Continue lyrica. pt declines gabapentin for neuropathic leg/finger pain but states that lyrica previously worked well for her. *Palliative Care will continue to follow this pt in outpt clinic for ongoing pain management and dose adjustments. Reinforced with patient that METHADONE SHOULD NOT BE TITRATED DAILY: Methadone is lipophilic, thus it takes time to develop tissue stores that maintain serum levels. Dosing must account for the accumulation of drug over days for both safety and efficacy. After steady-state is reached, about two-thirds of patients will get adequate pain relief with twice a day dosing.A number of drugs will alter methadone metabolism, so there needs to be close follow-up to drug interactions. Admission and Anticipated Discharge Date Admission Date: May 18, 2024 Subjective Assessed pt at bedside, no visitors present. Pt was AAOx4 and pleasantly communicative. She reports plan for radiation treatment at 1130 today and discharge to home afterwards. She c/o decreased mobility and concern that she may need a walker at home. ++ongoing sharp throbbing pain in left hip to pelvis and groin with radiation into left lower leg through knee and numb/stinging pain below knee which is well controlled with methadone. Pt shares she is sleeping well without much breakthrough pain with the methadone. Pt agreeable to DC home with the methadone PO 2.5mg q4h PRN and oxycodone 10mg PO q6h PRN for breakthrough pain. Review of Systems Review of Systems: All systems reviewed & are unremarkable except as noted in Subjective Physical Exam Physical Exam: AAOx4 in NAD on room air lungs CTA pharynx pink MMM; +lip/nare piercings dentition poor/edentulous/wears dentures abd soft, tender lower quadrant into suprapubic with radiation to left groin with deeper palpation left lower LLE strength diminished, cannot bear weight, difficulty lifting leg off bed skin pale, warm, dry normal affect, normal thought content Results & Data Vital Signs (Past 12 Hours) Vital Signs Temp Pulse Resp BP Pulse Ox O2 Del Method 05/22/24 08:02 36.9 C 93 H 16 147/91 H 98 Room Air Diagnostic Findings Abdomen/Pelvis CT 05/17/24 23:27 EXAM: CT abd pelvis IV con only CLINICAL HISTORY: Pt reports she has stage 4 breast cancer to bones, reports it is into L hip and goes down into ankle, reports pain worsened today currently undergoing treatment 94 ml opti 320 PW TECHNIQUE: CT of the abdomen and pelvis was performed with contrast, with the following protocol: axial images with, and reconstructed coronal and sagittal images. One of the following dose reduction techniques was utilized for this exam: Automated exposure control, adjustment of the mA and/or kV according to patient size, and use of iterative reconstruction. COMPARISON: Comparison is made with previous imaging dated 04/17/2024. FINDINGS: Abdomen: Liver: Normal in size, shape, and density. No focal lesions, cysts, or masses were identified. Hepatic vasculature and biliary ducts are unremarkable. Gallbladder and Biliary System: The gallbladder is normal in size and shape. No wall thickening, pericholecystic fluid, or gallstones were identified. The common bile duct is normal in caliber without dilation. Pancreas: Pancreatic head, body, and tail are visualized and appear normal in size and density. No pancreatic masses or calcifications were noted. The pancreatic duct is not dilated. Spleen: Normal in size, shape, and density. No splenic lesions or masses were identified. Kidneys and Adrenal Glands: Both kidneys are normal in size, shape, and position. Cortical thickness is within normal limits. No renal calculi or hydronephrosis. Adrenal glands are unremarkable with no evidence of masses or hyperplasia. Pelvis: Urinary Bladder: Normal in contour and wall thickness. No intraluminal lesions identified. Uterus removed surgically. Ovaries:Not well visualized but no gross abnormalities noted Two dense objects noted in pelvic region, each measuring 1.6cm, likely surgical material. Bowel: The visualized bowel loops are normal in caliber and appearance. No evidence of bowel obstruction or wall thickening. Bones and Soft Tissues: Multiple osteosclerotic lesions involving L1 vertebral body, S1 sacral vertebra, and posterior sacral element, left iliac bone involving the ischium, iliac crest and posterior acetabular column, Small foci of osteosclerotic lesion at right femoral head and left greater trochanter, All lesions are mainly sclerotic with little lytic component, no soft tissue component. No fractures were identified. Lower chest cuts showing faint posterior dependent atlectatic changes. IMPRESSION: Multiple osteosclerotic lesions involving L1 vertebral body, S1 sacral vertebra, and posterior sacral element. Left iliac bone involving the ischium, iliac crest and posterior acetabular column. Small foci of osteosclerotic lesion at right femoral head and left greater trochanter. Two dense objects noted in pelvic region, each measuring 1.6cm, likely surgical material, from removed uterus possibly ovaries. Findings are stable, with no significant interval changes. Electronically signed by July Samuels 05-18-2024 02:36 AM Tibia/Fibula X-Ray 05/18/24 09:49 XR tibia fibula LT 2V HISTORY: 44 years-old Female LLE pain acute pain in the left lower leg COMPARISON: 12/14/2014 TECHNIQUE: 2 views of the left tibia and fibula FINDINGS: No acute fracture, dislocation or significant joint space narrowing. Unremarkable soft tissues. IMPRESSION: No acute osseous abnormality. ACT 112: Negative or not required by law. The above report was generated using voice recognition software. It may contain grammatical, syntax or spelling errors. Electronically signed by: Onofre Andrews M.D. 05/18/2024 10:33 AM Venous Doppler Study 05/19/24 11:16 LEFT LOWER EXTREMITY VENOUS DOPPLER HISTORY: Acute pain and swelling of the left lower leg swelling proximal upper 3rd of thigh COMPARISON STUDY: 05/18/2024 FINDINGS: There is normal compressibility, flow, and augmentation within the left lower extremity deep venous system. Normal appearing left inguinal chain lymph nodes which are nonenlarged. IMPRESSION: Unchanged exam from the study obtained 24 hours earlier. No DVT identified. ACT 112: Negative or not required by law. Electronically signed by: Onofre Andrews M.D. 05/19/2024 1:[address] 05/19/24 15:54 CT venogram LE LT wo/w con CLINICAL HISTORY: proximal leg swelling TECHNIQUE: Multidetector row helical CT of the left lower extremity down through the feet was performed, following intravenous administration of iodinated contrast. No oral contrast was administered. Automated dose lowering techniques and/or adjustment according to patient size were utilized for this exam. Coronal and sagittal reformations were obtained. MIP and 3D volume rendered reconstructions were obtained. CT DOSE: 2101.35 mGy.cm Comparison: Comparison is made to CT abdomen pelvis 05/18/2024 FINDINGS: Pelvis: The bladder is unremarkable. A few surgical clips are noted in the peritoneum. Patient is status post hysterectomy. The bowel is unremarkable. CT venogram: The iliac arteries and their branches are unremarkable. No thrombus is seen in the venous system. IMPRESSION: No venous thrombus is seen. No other abnormalities. ACT 112: Negative or not required by law. Electronically signed by: Matias Marsh M.D. 05/20/2024 12:29 PM Medications Administered Current Inpatient Medications Acetaminophen (Acetaminophen 500 Mg Tab) 1,000 mg PO TID ABBI Stop: 06/17/24 08:59 Last Admin: 05/22/24 08:13 Dose: 1,000 mg Anastrozole (Anastrozole 1 Mg Tab) 1 mg PO DAILY ABBI Stop: 06/17/24 08:59 Last Admin: 05/22/24 08:15 Dose: 1 mg Bisacodyl (Bisacodyl 10 Mg Supp) 10 mg NE HS PRN PRN Reason: Constipation Stop: 06/17/24 07:37 Diphenhydramine HCl (Diphenhydramine Capsule 25 Mg Cap) 25 mg PO Q6H PRN PRN Reason: Itching Stop: 06/17/24 15:43 Last Admin: 05/19/24 00:27 Dose: 25 mg Enoxaparin Sodium (Enoxaparin Inj 40 Mg/0.4 Ml Syr) 40 mg SQ Q24H [facility] Stop: 06/17/24 07:37 Last Admin: 05/22/24 08:14 Dose: 40 mg Hydromorphone HCl (Hydromorphone Inj 0.5 Mg/0.5 Ml Syr) 0.25 mg IV Q4H PRN PRN Reason: very severe pain refractory to Stop: 06/01/24 11:31 Last Admin: 05/22/24 12:48 Dose: 0.25 mg Dexamethasone 4 mg/ Syringe 1 mls @ 1 mls/min IV Q24H [facility] Stop: 05/23/24 11:59 Last Admin: 05/22/24 12:50 Dose: 1 mls/min Lidocaine (Lidocaine 5% 1 Patch) 1 patch TD DAILY [facility] Stop: 06/18/24 08:59 Last Admin: 05/22/24 08:16 Dose: 1 patch Magnesium Hydroxide (Magnesium Hydroxide Susp 30 Ml Udc) 30 ml PO Q6H PRN PRN Reason: Constipation Stop: 06/17/24 07:37 Last Admin: 05/20/24 09:22 Dose: 30 ml Methadone HCl (Methadone Hcl 5 Mg Tab) 2.5 mg PO Q4H PRN PRN Reason: cancer pain Stop: 06/01/24 11:42 Last Admin: 05/22/24 11:06 Dose: 2.5 mg Miscellaneous (Remove Lidoderm Patch) 1 each N/A DAILY@2100 [facility] Stop: 06/18/24 20:59 Last Admin: 05/21/24 21:03 Dose: 1 each Naloxone HCl (Naloxone Hcl 0.4 Mg/1 Ml Vial/Carp) 0.4 mg IV PRN PRN PRN Reason: overdose Stop: 06/17/24 07:37 Ondansetron HCl (Ondansetron Inj 2 Mg/Ml 2 Ml Vial) 4 mg IV Q6H PRN PRN Reason: Nausea And Vomiting Stop: 06/17/24 07:37 Last Admin: 05/22/24 12:52 Dose: 4 mg Polyethylene Glycol (Polyethylene (Miralax) 17 Gm Pack) 17 gm PO DAILY [facility] Stop: 06/19/24 12:29 Last Admin: 05/22/24 08:14 Dose: 17 gm Pregabalin (Pregabalin 50 Mg Cap) 50 mg PO TID [facility] Stop: 06/18/24 13:59 Last Admin: 05/22/24 08:13 Dose: 50 mg PG Care Time/CCT Total # of Minutes Spent Total Time Spent with Patient: Total time spent is greater than 50% in coordination of care (as documented) at patient's floor/unit and/or counseling patient: Advanced Care Planning 83557 Advanced Care Planning 30 Min Coding [place] [address] SUB INP/OBS CARE 2/35MIN Patient Type Established History Expanded Problem Focused Exam Expanded Problem Focused Medical Decision Making Moderate Complexity Diagnoses Counseling regarding goals of care Z71.89 Palliative care by specialist Z51.5 Pain from bone metastases G89.3; C79.51 Cancer related pain G89.3 Additional Codes Advanced Care Planning - 57258 Advanced Care Planning 30 Min: 23536 Advanced Care Planning 30 Min ([id number])
== END 2024-05-22 14:00 | disposition home or self-care (01) | DRG 948 ==
LOC: ED 22:43 → SUATTDRO 05-18 04:46 → EDINP 05-18 04:46 → 3E 05-18 09:03